=== PATIENT | male | born 1935 | race Caucasian/White ===

== ENCOUNTER 2016-10-07 10:13 | Inpatient (IN) | payer MEDICARE, OTHER ==
[2016-10-07] VITALS (8 sets, daily range): BP systolic 133–164; BP diastolic 63–80; PULSE 80–86; RESP 18–21; TEMP 97.2–98.2; O2SAT 94–97
[~2016-10-07] VITALS: Ht 167.6 cm; Wt 92.3 kg
[~2016-10-07 10:13] MED LIST: ASPI325T PO; ATOR80TA PO; FISH1000 PO; FLUO.1%O OP; GLIP5 PO; GLUCTAB OR; ISOS30 OR; LISI-366 PO; SERT-129 PO; TRAZ100 PO
[2016-10-07] MEDS ORDERED: ISOS10TA3 PO (10:35)
[2016-10-07] MEDS ORDERED: SERT-129 PO (10:35)
[2016-10-07] MEDS ORDERED: LISI40TA PO (10:35)
[2016-10-07] MEDS ORDERED: ATOR1TAB18 PO (10:35)
[2016-10-07] MEDS ORDERED: GLIP5TAB8 PO (10:35)
[2016-10-07] MEDS ORDERED: SODIUM CHLOR 0.9% 1000 ML INJ 1,000 ML IV ONE (10:37)
[2016-10-07] MEDS ORDERED: SODIUM CHLORIDE 0.9% FLUSH 10 ML FLUSH IVF PRN (10:45)
--- NOTE | 2016-10-07 10:47 | PD ---
HPI . Fall Chief Complaint: Fall Time Seen by Provider: 10:37 Travel History International Travel<30 days: No Contact w/Intl Traveler<30days: No Traveled to known affect area: No History of Present Illness HPI Patient presents by [facility] chief complaint fall. Patient reports that he fell in the bathroom this morning and struck his head on the floor. He denies loss of consciousness. This patient has reportedly been suffering numerous falls in the recent past. His other reported to EMS that the patient has had a decreased level of consciousness for the last several days. Patient reports that he has had a couple of episodes of emesis. He has been incontinent of urine. He denies any associated fever. He states he struck his head when he fell this morning but otherwise had no injuries. Patient denies headache, blurred vision, neck pain, chest pain shortness of breath or diarrhea. He admits to occasional emesis and some urinary hesitancy and dribbling. He states that he is normally ambulatory and occasionally uses a walker. PFSH Past Medical History Autoimmune Disease: No Anxiety: Yes Depression: Yes Cancer: No Cardiovascular Problems: Yes (TRIPPLE BYPASS) High Cholesterol: Yes Chest Pain: Yes Cerebrovascular Accident: Yes (X2) Diabetes: Yes Patient Takes Glucophage: No Diminished Hearing: No Endocrine: Yes Gastrointestinal Disorders: No Genitourinary: No Heparin Induced Thrombocytopen: No Hypertension: Yes Immune Disorder: No Implanted Vascular Access Dvce: No Musculoskeletal: No Neurologic: Yes Psychiatric: Yes Reproductive: No Respiratory: No Myocardial Infarction: Yes (23 YEARS AGO ) Sickle Cell Disease: No Thyroid Disease: No Past Surgical History Cardiac Surgery: Yes (TRIPLE BYPASS) Coronary Artery Bypass Graft: Yes (TRIPLE BYPASS) Oral Surgery: Yes (PARTIAL PLATES IN MOUTH ) Pacemaker: No Other Surgery: Yes (FISSURE A TEENAGER) Social History Alcohol Use: No Tobacco Use: No Substance Use: No Allergies-Medications (Allergen,Severity, Reaction): Coded Allergies: No Known Allergies (Unverified , 12/13/15) Reported Meds & Prescriptions Reported Meds & Active Scripts Active Reported Glipizide 5 Mg Tab 5 Mg PO DAILY Take 30 minutes before a meal Sertraline (Sertraline HCl) 100 Mg Tab 100 Mg PO DAILY Atorvastatin (Atorvastatin Calcium) 80 Mg Tab 80 Mg PO HS Isosorbide Mononitrate 10 Mg Tab 10 Mg PO BID Take 2 doses 7 hours apart. Lisinopril 40 Mg Tab 40 Mg PO DAILY Review of Systems Except as stated in HPI: all other systems reviewed are Neg General / Constitutional: No: Fever, Chills Eyes: No: Diploplia, Blurred Vision HENT: No: Headaches, Vertigo, Lightheadedness Cardiovascular: No: Chest Pain or Discomfort Respiratory: No: Shortness of Breath Gastrointestinal: Positive: Nausea, Vomiting, No: Diarrhea, Abdominal Pain Genitourinary: Positive: Hesitancy, Dribbling Neurologic: Positive: Weakness, No: Syncope Physical Exam Narrative GENERAL: Disheveled, elderly man who does not appear to be in any acute distress SKIN: Warm and dry. HEAD: Atraumatic. Normocephalic. No external signs of injury to his head. EYES: Pupils equal and round. Extraocular movements are intact. ENT: No nasal bleeding or discharge. Mucous membranes pink and moist. NECK: Trachea midline. Neck is supple with full range of motion. CARDIOVASCULAR: Regular rate and rhythm. Heart sounds are normal. RESPIRATORY: No accessory muscle use. Lungs sound clear with full air movement throughout. GASTROINTESTINAL: Abdomen soft, non-tender. Protuberant abdomen. MUSCULOSKELETAL: No obvious deformities. No edema. NEUROLOGICAL: Awake and alert. No obvious cranial nerve deficits. Motor grossly within normal limits. Normal speech. PSYCHIATRIC: Appropriate mood and affect; insight and judgment normal. Data Data Last Documented VS Vital Signs Date Time Temp Pulse Resp B/P Pulse Ox O2 Delivery O2 Flow Rate FiO2 10/07/16 10:44 95 Nasal Cannula 2 10/07/16 10:36 84 18 10/07/16 10:27 98.2 149/69 Orders Electrocardiogram (10/07/16 10:37) Complete Blood Count With Diff (10/07/16 10:37) Comprehensive Metabolic Panel (10/07/16 10:37) Magnesium (Mg) (10/07/16 10:37) Ckmb (Isoenzyme) Profile (10/07/16 10:37) Troponin I (10/07/16 10:37) Urinalysis - C+S If Indicated (10/07/16 10:37) Chest, Single Ap (10/07/16 10:37) Ct Brain W/O Iv Contrast(Rout) (10/07/16 10:37) Ecg Monitoring (10/07/16 10:37) Iv Access Insert/Monitor (10/07/16 10:37) Oximetry (10/07/16 10:37) Sodium Chloride 0.9% Flush (Ns Flush) (10/07/16 10:45) Sodium Chlor 0.9% 1000 Ml Inj (Ns 1000 M (10/07/16 10:37) CKMB (10/07/16 10:45) CKMB% (10/07/16 10:45) Admit Order (Ed Use Only) (10/07/16 12:11) Consult Nephrology (10/07/16 ) Labs Laboratory Tests Test 10/07/16 10/07/16 10/07/16 10:45 10:49 11:25 Sodium Level 134 MEQ/L Potassium Level 5.8 MEQ/L Chloride Level 96 MEQ/L Carbon Dioxide Level 17.0 MEQ/L Anion Gap 21 MEQ/L Blood Urea Nitrogen 198 MG/DL Creatinine 11.84 MG/DL Estimat Glomerular Filtration 4 ML/MIN Rate Random Glucose 172 MG/DL Calcium Level 8.4 MG/DL Magnesium Level 2.7 MG/DL Total Bilirubin 0.7 MG/DL Aspartate Amino Transf 24 U/L (AST/SGOT) Alanine Aminotransferase 29 U/L (ALT/SGPT) Alkaline Phosphatase 114 U/L Total Creatine Kinase 513 U/L Creatine Kinase MB 17.8 NG/ML Creatine Kinase MB % 3.5 % Troponin I 0.24 NG/ML Total Protein 7.2 GM/DL Albumin 3.0 GM/DL White Blood Count 24.1 TH/MM3 Red Blood Count 4.84 MIL/MM3 Hemoglobin 13.9 GM/DL Hematocrit 42.6 % Mean Corpuscular Volume 88.0 FL Mean Corpuscular Hemoglobin 28.8 PG Mean Corpuscular Hemoglobin 32.7 % Concent Red Cell Distribution Width 13.9 % Platelet Count 283 TH/MM3 Mean Platelet Volume 9.7 FL Neutrophils (%) (Auto) 91.0 % Lymphocytes (%) (Auto) 2.1 % Monocytes (%) (Auto) 6.8 % Eosinophils (%) (Auto) 0.0 % Basophils (%) (Auto) 0.1 % Neutrophils # (Auto) 21.9 TH/MM3 Lymphocytes # (Auto) 0.5 TH/MM3 Monocytes # (Auto) 1.6 TH/MM3 Eosinophils # (Auto) 0.0 TH/MM3 Basophils # (Auto) 0.0 TH/MM3 CBC Comment DIFF FINAL Differential Comment Urine Color YELLOW Urine Turbidity HAZY Urine pH 5.0 Urine Specific [place] 1.010 Urine Protein TRACE mg/dL Urine Glucose (UA) NEG mg/dL Urine Ketones NEG mg/dL Urine Occult Blood MOD Urine Nitrite NEG Urine Bilirubin NEG Urine Urobilinogen LESS THAN 2.0 MG/DL Urine Leukocyte Esterase NEG Urine RBC 31 /hpf Urine WBC 5 /hpf Urine Squamous Epithelial <1 /hpf Cells Urine Transitional Epithelial <1 /hpf Cells Urine Amorphous Sediment FEW Urine Bacteria FEW /hpf Microscopic Urinalysis Comment CULT NOT INDICATED MDM Medical Decision Making Medical Screen Exam Complete: Yes Emergency Medical Condition: Yes Medical Record Reviewed: Yes (medical history is significant for hypertension, CVA, coronary artery disease status post CABG, diabetes, hyperlipidemia) Differential Diagnosis Differential diagnosis of weakness includes but is not limited to infection, CVA , electrolyte disturbance, renal failure, hypoglycemia, UTI, ACS, acute blood loss Narrative Course Patient presents for evaluation of a fall this morning with an injury to his head. He also needs to be evaluated for weakness with frequent falls. Last Impressions Head CT 10/07/16 1037 Signed Impressions: Service Date/Time: Friday, October 07, 2016 10:55 - CONCLUSION: No acute disease. Simi Cuevas MD Chest X-Ray 10/07/16 1037 Signed Impressions: Service Date/Time: Friday, October 07, 2016 10:38 - CONCLUSION: No acute disease. Simi Cuevas MD Chest x-ray was independently viewed by me. CBC & BMP Diagram 10/07/16 10:45 10/07/16 10:49 Total CK is 513, the 17.8, RI 3.5 and troponin 0.24. This is probably related to his renal failure. UA has blood but is otherwise negative. Physician Communication Physician Communication Dr. Hicks will admit to the residents' service. Diagnosis Primary Impression: Leukocytosis Qualified Code: D72.829 - Leukocytosis, unspecified type Additional Impressions: Frequent falls Renal failure Admitting Information Admitting Physician Requests: Admit Condition: Stable Iram Rasmussen MD Oct 07, 2016 10:47
--- NOTE | 2016-10-07 11:00 | RADRPT ---
EXAM DATE/TIME: 10/07/2016 10:38 [facility] COMPARISON: CHEST SINGLE AP, August 29, 2015, 12:06. INDICATIONS : Syncopal episode. MEDICAL HISTORY : None. SURGICAL HISTORY : Triple bypass. ENCOUNTER: Initial ACUITY: 1 day PAIN SCORE: 0/10 LOCATION: Bilateral chest FINDINGS: A single view of the chest demonstrates the lungs to be symmetrically aerated without evidence of mas s, infiltrate or effusion. Heart size is normal. Multiple intact median sternotomy wires. Osseous str uctures are intact. CONCLUSION: No acute disease. Simi Cuevas MD on October 07, 2016 at 10:59 Board Certified Radiologist. This report was verified electronically.
[2016-10-07 11:10] LABS: AUTOMATED NEUTROPHIL # 21.9 TH/MM3 (1.8-7.7); BASOPHIL % 0.1 % (0.0-2.0); HEMATOCRIT 42.6 % (39.0-51.0); HEMO FLAGS DIFF FINAL; LYMPH % 2.1 % (9.0-44.0); LYMPHOCYTE # 0.5 TH/MM3 (1.0-4.8); MEAN CORPUSCULAR HEMOGLOBIN 28.8 PG (27.0-34.0); MEAN CORPUSCULAR HGB CONC 32.7 % (32.0-36.0); MONO % 6.8 % (0.0-8.0); PLATELET COUNT 283 TH/MM3 (150-450); RED BLOOD COUNT 4.84 MIL/MM3 (4.50-5.90); RED CELL DISTRIBUTION WIDTH 13.9 % (11.6-17.2); WHITE BLOOD COUNT 24.1 TH/MM3 (4.0-11.0)
--- NOTE | 2016-10-07 11:12 | RADRPT ---
EXAM DATE/TIME: 10/07/2016 10:55 [facility] COMPARISON: CT BRAIN W/O CONTRAST, December 13, 2015, 14:15. INDICATIONS : Fall, generalized weakness. RADIATION DOSE: 45.22 CTDIvol (mGy) MEDICAL HISTORY : Stroke. Cardiovascular disease Hypertension. SURGICAL HISTORY : None. ENCOUNTER: Initial ACUITY: 1 day PAIN SCALE: 0/10 LOCATION: cranial TECHNIQUE: Multiple contiguous axial images were obtained of the head. Using automated exposure control and adj ustment of the mA and/or kV according to patient size, radiation dose was kept as low as reasonably a chievable to obtain optimal diagnostic quality images. FINDINGS: CEREBRUM: The ventricles are normal for age. No evidence of midline shift, mass lesion, hemorrhage or acute in farction. No extra-axial fluid collections are seen. POSTERIOR FOSSA: The cerebellum and brainstem are intact. The 4th ventricle is midline. The cerebellopontine angle i s unremarkable. EXTRACRANIAL: The visualized portion of the orbits is intact. SKULL: The calvaria is intact. No evidence of skull fracture. CONCLUSION: No acute disease. Simi Cuevas MD on October 07, 2016 at 11:10 Board Certified Radiologist. This report was verified electronically.
[2016-10-07 11:33] LABS: ALT (GPT) 29 U/L (12-78); ANION GAP 21 MEQ/L (5-15); AST (GOT) 24 U/L (15-37); CHLORIDE 96 MEQ/L (98-107); GLOMERULAR FILTRATION RATE 4 ML/MIN (>89); MAGNESIUM 2.7 MG/DL (1.5-2.5); POTASSIUM 5.8 MEQ/L (3.5-5.1); SODIUM (NA) 134 MEQ/L (136-145)
[2016-10-07 11:36] LABS: ALKALINE PHOSPHATASE 114 U/L (45-117); BLOOD UREA NITROGEN 198 MG/DL (7-18); CREATINE KINASE 513 U/L (39-308); TOTAL BILIRUBIN ADULT 0.7 MG/DL (0.2-1.0)
[2016-10-07 11:48] LABS: BACTERIA, URINE FEW /hpf; BLOOD, URINE MOD (NEG); GLUCOSE,URINE NEG (NEG); KETONE, URINE NEG (NEG); NITRITE,URINE NEG (NEG); SQUAMOUS EPITHELIAL CELL URINE <1 /hpf (0-5); TRANSITIONAL EPI CELLS, URINE <1 /hpf; URINE COLOR YELLOW (YELLW/STRAW)
[2016-10-07 11:50] LABS: COMMENT (UR) CULT NOT INDICATED; CULTURE IF INDICATED CULT NOT INDICATED
[2016-10-07 12:00] LABS: CKMB 17.8 NG/ML (0.5-3.6)
--- NOTE | 2016-10-07 12:59 | HHI.HP ---
[facility] Service Family Medicine Primary Care Physician [facility] Admission Diagnosis RENAL FAILURE, FREQUENT FALLS Diagnoses: International Travel<30 Days: No Contact w/Intl Traveler<30days: No Known Affected Area: No History of Present Illness Pt is an 81 year old male with past medical history significant for CVA, CAD s/p CABG, hypertension, DM presenting due to recurrent falls, found to be in renal failure. Pt presents to the ED with a family friend. Pt reports that he has been falling more frequently over the past week and has fallen 5 times. He reports that this morning he was in the bathroom when he fell and hit the right side of his forehead. He denies loss of consciousness or chest pain prior to fall. He is unable to recall the events leading up to the fall or describe how he fell. He reports that his girlfriend who lives with him has also fallen recently. His daughter who was in [place] was informed that he fell and encouraged him to go to the ED. [facility] was called and brought pt to the emergency department. He has been feeling progressively more week over the past week. He is able to produce urine, but reports low urine volume and dark color, unsure of any blood. Over the past 2 weeks he has been having chest pain located on the left side fo his chest with radiation down his left arm. Pain is intermittent and he is not able to describe it. He denies current chest pain, shortness of breath, abdominal pain. Pt has a difficult time answering direct questions and history was difficult to obtain. Family friend who is present in the room reports that pt is acting more strange than usual and is not at his baseline. (German Hicks MD R2) Review of Systems Constitutional: DENIES: Fever Eyes: DENIES: Blurred vision, Vision loss Ears, nose, mouth, throat: DENIES: Hearing loss, Vertigo Cardiovascular: DENIES: Chest pain, Syncope, Lower Extremity Edema Gastrointestinal: COMPLAINS OF: Abdominal pain, Constipation Genitourinary: DENIES: Urinary frequency, Dysuria Musculoskeletal: COMPLAINS OF: Joint pain, Muscle aches Integumentary: COMPLAINS OF: Pruritus, DENIES: Abnormal pigmentation, Rash Neurologic: COMPLAINS OF: Localized weakness, DENIES: Speech Problems Psychiatric: COMPLAINS OF: Mood changes, Depression (German Hicks MD R2) Past Family Social History Past Medical History CVA x2 CAD hypertension diabetes mellitus Past Surgical History CABG Oral surgery Reported Medications Reported Meds & Active Scripts Active Reported Glipizide 5 Mg Tab 5 Mg PO DAILY Take 30 minutes before a meal Sertraline (Sertraline HCl) 100 Mg Tab 100 Mg PO DAILY Atorvastatin (Atorvastatin Calcium) 80 Mg Tab 80 Mg PO HS Isosorbide Mononitrate 10 Mg Tab 10 Mg PO BID Take 2 doses 7 hours apart. Lisinopril 40 Mg Tab 40 Mg PO DAILY (German Hicks MD R2) Allergies: Coded Allergies: No Known Allergies (Unverified , 12/13/15) Active Ordered Medications Inpatient Medications Acetaminophen (Tylenol) 650 mg Q6H PRN PO HEADACHE OR TEMP > 101 F; Start at 13:45 Aspirin (Aspirin) 325 mg NOW PO Last administered on 10/07/16 14:02; Start 10/07 at 14:00; Stop 10/08/16 at 13:59 Dextrose (D50w (Vial) Inj) 25 ml UNSCH PRN IV PUSH HYPOGLYCEMIA-SEE COMMENTS; Start 10/07/16 at 15:00 Glucagon (Glucagon Inj) 1 mg UNSCH PRN OTHER HYPOGLYCEMIA-SEE COMMENTS; Start 10/07/16 at 15:00 Heparin Sodium (Porcine) 5000 units 5,000 units Q8H SQ Last administered on 10/07 14:02; Start 10/07/16 at 14:00 Insulin Aspart 1 1 ACHS SLIDING SCALE SQ ; Start 10/07/16 at 16:00 Morphine Sulfate (Morphine Inj) 2 mg Q30M PRN IV CHEST PAIN; Start 10/07/16 at 14:00 Nitroglycerin (Nitrostat Sl) 0.4 mg Q5M PRN SL CHEST PAIN; Start 10/07/16 at 14: 00 Sertraline HCl (Zoloft) 100 mg DAILY PO ; Start 10/08/16 at 09:00 Sodium Bicarbonate/ Sodium Chloride (Sodium Bicarbonate 8.4% Inj/1/2 NS 1000 ml Inj) 1,075 ml @ 125 mls/hr Q8H36M IV ; Start 10/07/16 at 17:00 Sodium Chloride (NS 1000 ml Inj) 1,000 ml @ 200 mls/hr Q5H IV Last administered on 10/07/16 14:03; Start 10/07/16 at 13:54; Stop 10/07/16 at 16:31; Status DC Sodium Chloride (NS Flush) 2 ml UNSCH PRN IV FLUSH FLUSH AFTER USING IV ACCESS ; Start 10/07/16 at 13:45 Family History Mother and father lived healthy lives and of old age. Social History Quit smoking 20 years ago, smoked 1PPD for about 10 years He will have a beer occasionally. Denies illicit substance use Lives in a mobile home with his girl friend. (German Hicks MD R2) Physical Exam Vital Signs Vital Signs Date Time Temp Pulse Resp B/P Pulse Ox O2 Delivery O2 Flow Rate FiO2 10/07/16 12:35 80 18 164/80 97 Nasal Cannula 2 10/07/16 10:44 95 Nasal Cannula 2 10/07/16 10:36 84 18 99 Room Air 10/07/16 10:27 98.2 85 18 149/69 Physical Exam GENERAL: This is a well-nourished, well-developed patient, in no apparent distress. SKIN: No rashes, ecchymoses or lesions. Cool and dry. HEAD: Atraumatic. Normocephalic. No temporal or scalp tenderness. EYES: Pupils equal round and reactive. Extraocular motions intact. No scleral icterus. No injection or drainage. ENT: Nose without bleeding, purulent drainage or septal hematoma. Throat without erythema, tonsillar hypertrophy or exudate. Uvula midline. Airway patent. NECK: Trachea midline. No JVD or lymphadenopathy. Supple, nontender, no meningeal signs. CARDIOVASCULAR: Regular rate and rhythm without murmurs, gallops, or rubs. RESPIRATORY: Clear to auscultation. Breath sounds equal bilaterally. No wheezes , rales, or rhonchi. GASTROINTESTINAL: Abdomen soft, non-tender, + bowel sounds. No hepato- splenomegaly, or palpable masses. No guarding. Umbilical hernia, reducible. MUSCULOSKELETAL: Extremities without clubbing, cyanosis, or edema. No joint effusion, or edema noted. No calf tenderness. Negative Homans sign bilaterally. NEUROLOGICAL: Alert and oriented to person place and time. Cranial nerves grossly intact. Motor and sensory grossly within normal limits, pt able to move all extremities against resistance. Slow speech. Pt with difficulty answering questions directly. Laboratory Laboratory Tests Test 10/07/16 10/07/16 10/07/16 10:45 10:49 11:25 Sodium Level 134 Potassium Level 5.8 Chloride Level 96 Carbon Dioxide Level 17.0 Anion Gap 21 Blood Urea Nitrogen 198 Creatinine 11.84 Estimat Glomerular Filtration 4 Rate Random Glucose 172 Calcium Level 8.4 Magnesium Level 2.7 Total Bilirubin 0.7 Aspartate Amino Transf 24 (AST/SGOT) Alanine Aminotransferase 29 (ALT/SGPT) Alkaline Phosphatase 114 Total Creatine Kinase 513 Creatine Kinase MB 17.8 Creatine Kinase MB % 3.5 Troponin I 0.24 Total Protein 7.2 Albumin 3.0 White Blood Count 24.1 Red Blood Count 4.84 Hemoglobin 13.9 Hematocrit 42.6 Mean Corpuscular Volume 88.0 Mean Corpuscular Hemoglobin 28.8 Mean Corpuscular Hemoglobin 32.7 Concent Red Cell Distribution Width 13.9 Platelet Count 283 Mean Platelet Volume 9.7 Neutrophils (%) (Auto) 91.0 Lymphocytes (%) (Auto) 2.1 Monocytes (%) (Auto) 6.8 Eosinophils (%) (Auto) 0.0 Basophils (%) (Auto) 0.1 Neutrophils # (Auto) 21.9 Lymphocytes # (Auto) 0.5 Monocytes # (Auto) 1.6 Eosinophils # (Auto) 0.0 Basophils # (Auto) 0.0 CBC Comment DIFF FINAL Differential Comment Urine Color YELLOW Urine Turbidity HAZY Urine pH 5.0 Urine Specific [place] 1.010 Urine Protein TRACE Urine Glucose (UA) NEG Urine Ketones NEG Urine Occult Blood MOD Urine Nitrite NEG Urine Bilirubin NEG Urine Urobilinogen LESS THAN 2.0 Urine Leukocyte Esterase NEG Urine RBC 31 Urine WBC 5 Urine Squamous Epithelial <1 Cells Urine Transitional Epithelial <1 Cells Urine Amorphous Sediment FEW Urine Bacteria FEW Microscopic Urinalysis Comment CULT NOT INDICATED (German Hicks MD R2) Result Diagram: 10/07/16 1049 10/07/16 1045 Imaging Last [address] 10/07/16 1037 Signed Impressions: Service Date/Time: Friday, October 07, 2016 10:55 - CONCLUSION: No acute disease. Simi Cuevas MD Chest X-Ray 10/07/16 1037 Signed Impressions: Service Date/Time: Friday, October 07, 2016 10:38 - CONCLUSION: No acute disease. Simi Cuevas MD Renal Ultrasound 10/07/16 0000 Signed Impressions: Service Date/Time: Friday, October 07, 2016 14:47 - CONCLUSION: 1. Moderate hydronephrosis of the left collecting system. 2. Distended urinary bladder. Vasiliy Owusu MD (German Hicks MD R2) Assessment and Plan Assessment and Plan Pt is an 81 year old male with past medical history significant for CVA, CAD s/p CABG, hypertension, DM presenting due to recurrent falls, found to be in renal failure. Pt endorses vague history of chest pain, initial troponin elevated to 0.24. Nephrology has been consulted. Will rule out ACS. Code Status Full Discussed Condition With dw Dr. Mendoza, Dr. Goins (German Hicks MD R2) Attending Attestation Patient seen and examined. Case reviewed and discussed with the resident team. Agree with plan of care as discussed with me and documented in the resident note. pt seen in his room when admitted and spoke to his daughter (Mariana Mendoza MD) Problem List: (1) Renal failure Status: Acute Plan: On admission pt with significantly elevated Creatinine of 11.84. Baseline is around 1.10. Unclear etiology of renal failure, likely obstructive. Nephrology has been consulted, appreciate recommendations -See fluid below -Graff catheter placed, monitor urine output -Phosphorus elevated to 8.7 -Potassium elevated to 5.8, no associated EKG changes -Urine creatinine and sodium pending -UDS ordered Imaging: Kidney ultrasound 10/07: Moderate hydronephrosis of the left collecting system. Distended urinary bladder. Indications for dialysis Fluid overload refractory to diuretics Hyperkalemia> 6.5 Metabolic acidosis pH<7.1 Signs of uremia: Pericarditis, neuropathy, decline in mental status (2) Leucocytosis Status: Acute Plan: On admission patient with elevated white blood cell count of 24.9 with left shift. Patient has been afebrile. Likely due to acute renal failure. -Lactic acid pending -Blood cultures ordered -UA with no signs of infection -Chest x-ray showing no acute disease -Continue to monitor for signs of infection (3) Weakness Status: Acute Plan: Likely due to renal failure, differential includes malnutrition versus hyperammonemia versus vitamin deficiency versus others. Will check the following: -Ammonia -Vitamin B-12 -Thiamine -Ethanol -See renal failure above -PT has been consulted (4) Elevated troponin Status: Acute Plan: Pt with history of CABG. On admission troponin elevated to 0.24, CKMD 17.8, CK 513,likely due to renal failuyre. Pt endorses history of left sided chest pain with radiation down his left arm. This has been intermittent over the past 2 weeks. He is unable to specify the last time he experienced chest pain. -Will rule out ACS -Will trend Troponin, CKMB, EKG x2 (5) Diabetes Status: Acute Plan: -Hold home Glipizide -Low dose SSI (6) Nutrition, metabolism, and development symptoms Status: Acute Plan: Fluids: Sodium bicarbonate 125 mls/hr Electrolytes: See renal failure above, continue to monitor Nutrition: Renal diet (7) No contraindication to deep vein thrombosis (DVT) prophylaxis Status: Acute Plan: -Heparin (German Hicks MD R2) Physician Certification 2 Midnight Certification Type: Admission for Inpatient Services Order for Inpatient Services The services are ordered in accordance with Medicare regulations or non- Medicare payer requirements, as applicable. In the case of services not specified as inpatient-only, they are appropriately provided as inpatient services in accordance with the 2-midnight benchmark. Estimated LOS (days): 2 2 days is the estimated time the patient will need to remain in the hospital, assuming treatment plan goals are met and no additional complications. Post-Hospital Plan: Not yet determined (German Hicks MD R2) Problem Qualifiers (1) Leucocytosis: Qualified Code: D72.829 - Leukocytosis, unspecified type (2) Diabetes: Qualified Code: E11.8 - Type 2 diabetes mellitus with complication, unspecified retirement insulin use status German Hicks MD R2 Oct 07, 2016 12:59 Mariana Mendoza MD Oct 08, 2016 13:46
[2016-10-07] MEDS ORDERED: SODIUM CHLORIDE 0.9% FLUSH 10 ML FLUSH IV FLUSH PRN (13:45)
[2016-10-07] MEDS ORDERED: SODIUM CHLOR 0.9% 1000 ML INJ 1,000 ML IV SCH (13:54)
[2016-10-07] MEDS ORDERED: MORPHINE SULFATE 4 MG/ML INJ IV PRN (14:00)
[2016-10-07] MEDS ORDERED: NITROGLYCERIN 0.4 MG SL 25 TABS/BTL SL PRN (14:00)
[2016-10-07] MEDS ORDERED: HEPARIN SODIUM - SQ 10,000 UNITS/ML VIAL SQ SCH (14:00)
[2016-10-07] MEDS ORDERED: ASPIRIN 325 MG TAB PO SCH (14:00)
[2016-10-07] MEDS ORDERED: DEXTROSE 50% IN WATER 50 ML VIAL(D50) IV PUSH PRN (15:00)
[2016-10-07] MEDS ORDERED: GLUCAGON 1 MG/ML VIAL OTHER PRN (15:00)
--- NOTE | 2016-10-07 15:21 | RADRPT ---
EXAM DATE/TIME: 10/07/2016 14:47 [facility] COMPARISON: No previous studies available for comparison. INDICATIONS : Increased BUN and Creatinine. MEDICAL HISTORY : Myocardial infarction. Hypercholesterolemia. Hypertension. Hearing loss. Cerebrovascular accident. Di abetes. Depression. Anxiety. Measles. SURGICAL HISTORY : CABG. Fissure repair. ENCOUNTER: Initial ACUITY: 1 day PAIN SCORE: 0/10 LOCATION: Bilateral flank MEASUREMENTS: RIGHT KIDNEY: 12.1 x 5.3 x 5.0 cm LEFT KIDNEY: 12.7 x 6.5 x 6.8 cm FINDINGS: RIGHT KIDNEY: Renal cortex is normal in thickness and echotexture. No hydronephrosis, stone, or mass. LEFT KIDNEY: There is moderate hydronephrosis of the left collecting system. No definite calcifications are seen i n the left renal pelvis. The proximal left ureter is dilated. BLADDER: Urinary bladder appears to be distended with a volume of 1679 mL. CONCLUSION: 1. Moderate hydronephrosis of the left collecting system. 2. Distended urinary bladder. Vasiliy Owusu MD on October 07, 2016 at 15:18 Board Certified Radiologist. This report was verified electronically.
[2016-10-07] MEDS: INSULIN ASPART SUPPLEMENTAL SCALE SQ SCH ×2 (16:00→22:29)
[2016-10-07] MEDS: SODIUM BICARBONATE 8.4% INJ 75 MEQ in SODIUM CHLOR 0.45% 1000 ML INJ 1,000 ML IV SCH (18:41)
[2016-10-07 19:34] LABS: CKMB 15.6 NG/ML (0.5-3.6)
[2016-10-07] MEDS: SODIUM CHLORIDE 0.9% FLUSH 10 ML FLUSH IV FLUSH SCH (21:00)
[2016-10-07 21:07] LABS: AMPHETAMINE, URINE NEG (NEG); BARBITURATES, URINE NEG (NEG); COCAINE, URINE NEG (NEG)
--- NOTE | 2016-10-07 21:23 | MB ---
cc: GRETA BARBER MD DATE OF CONSULTATION 10/07/16 REASON FOR CONSULTATION Acute renal failure management. HISTORY OF PRESENT ILLNESS This is an 81-year-old male with a history of CVA as well as CAD status post coronary artery bypass graft, hypertension and diabetes. The patient apparently has had several recurrent falls at home and has been falling apparently more at home over the last week. Apparently, the patient lives in a mobile home and was in the bathroom and fell and hit the right side of his forehead. The patient denies any loss of consciousness or dizziness otherwise. However, he was on the floor for some time. It was unclear how long he had been on the floor. The patient apparently has had some low urine output for several days with some dark color. He has some intermittent chest pain noted as well. The patient was brought to the emergency room and evaluated. Here he was found to have significant renal failure with a creatinine of 11.8. His previous creatinine was 1.3 in November of last year. The patient was admitted to the ER and started on IV fluids with normal saline at 100 cc/hour. At this point, he has been resting in bed comfortably. No acute distress or complaints. He does report having some generalized weakness. He otherwise has no acute complaints. REVIEW OF SYSTEMS The patient reports having several falls over the last several weeks. No nausea or vomiting. He has had some constipation. No current chest pains. However, did report having some chest pains earlier. No dizziness or loss of consciousness otherwise review of systems negative. The patient otherwise has reported some urinary incontinence. PAST MEDICAL HISTORY 1. Cerebrovascular accident x2, 2. Coronary artery disease 3. Hypertension, 4. Diabetes. PAST SURGICAL HISTORY 1. Coronary artery bypass graft 2. Oral surgery. MEDICATIONS At home, 1. Glipizide. 2. Sertraline. 3. Atorvastatin 4. Imdur 5. Lisinopril 40 mg daily. ALLERGIES NO KNOWN DRUG ALLERGIES. FAMILY HISTORY Mother and father of old age. SOCIAL HISTORY History of tobacco use, quit smoking 20 years ago with one pack per day for 10 years. The patient with social alcohol use. No drug use. The patient lives in a mobile home with his girlfriend. PHYSICAL EXAMINATION VITAL SIGNS: At time of evaluation, temperature 97.2, pulse 86, respiratory rate 21, blood pressure 156/72 with pulse ox 94%. GENERAL: Awake, somewhat confused, no apparent distress. HEENT/NECK: Soft, supple. CARDIAC: Regular rate and rhythm. PULMONARY: Lungs clear to auscultation bilaterally. ABDOMEN: Soft, nontender, nondistended. EXTREMITIES: No edema. LABORATORY DATA White count 24.1, hemoglobin 13.9, hematocrit 42.6 with platelet count 283. Sodium 134, potassium 5.8, chloride 96, bicarb 17, BUN 198, creatinine 11.8, glucose 172, calcium 8.4, phosphorus 8.7, magnesium 2.7, CK 513, CK-MB 17.8 with troponin 0.24, albumin 3.0. Urinalysis with trace protein, negative glucose, less than one epithelial cell, few bacteria. Few sediment. 31 red blood cells noted. ASSESSMENT/PLAN 1. Acute kidney injury. The patient had a creatinine of 1.3 in November of last year. At this point, he has presented with a creatinine of 11.8. It is unclear right now what the exact etiology would be for this. I will go ahead and check urine electrolytes, urine sodium and urine creatinine. The patient may have had some potential rhabdomyolysis after his fall. His initial CK level here, however, is 513. In addition, the patient had a renal ultrasound performed which showed moderate left-sided hydronephrosis and distended urinary bladder with approximately 1.6 liters of urine in the bladder. At this point, I will go ahead and order a Graff catheter and continue to monitor urine output. May consider repeat renal imaging after Graff is in to assess for any ongoing hydronephrosis or bladder issues. However, I suspect there may be an obstructive component here which may be potentially due to prostate hypertrophy. May consider further evaluation if necessary, however start with Graff catheter at this point and continue to monitor for urine output. At this point, continue with normal saline. We will give IV fluids at 125 cc/hour and continue monitor for improvement in urine output. 2. Hyperkalemia. The patient had a potassium level of 5.8. This was likely secondary to acute renal failure. Continue with IV fluids and monitor for urine output at this point. No immediate need for any hemodialysis at this time, however, if patient has little improvement or minimal urine output may need to consider for dialysis. 3. Acidosis. The patient has a bicarbonate of 17. We will add bicarbonate to IV fluids and continue to monitor. 4. Hypertension, blood pressure is stable. 5. Diabetes. Continue with glucose and insulin sliding scale. 6. CAD. The patient has some mild chest pains. Initial troponin was 0.24. Continue to monitor. Followup enzymes with primary team. 7. Recent falls. The patient has reportedly had recent fall. It is unclear what the etiology is for this at this point. At this point he is resting in bed comfortably. The patient had a CT of the head when he came in with no acute disease. Continue to monitor. MD GREG SalmeronP/ /4:26 PM /9:02 PM MTDD
[2016-10-07] MEDS: HEPARIN SODIUM - SQ 10,000 UNITS/ML VIAL SQ SCH (22:27)
[2016-10-08] VITALS (10 sets, daily range): BP systolic 140–157; BP diastolic 63–85; PULSE 72–86; RESP 17–20; TEMP 97.3–97.8; O2SAT 94–97
[2016-10-08] MEDS: SODIUM BICARBONATE 8.4% INJ 75 MEQ in SODIUM CHLOR 0.45% 1000 ML INJ 1,000 ML IV SCH ×3 (01:07→20:14)
[2016-10-08 01:18] LABS: CREATINE KINASE 291 U/L (39-308)
[2016-10-08 01:32] LABS: CKMB 13.2 NG/ML (0.5-3.6)
[2016-10-08] MEDS: INSULIN ASPART SUPPLEMENTAL SCALE SQ SCH ×4 (05:43→20:14)
[2016-10-08 07:32] LABS: AUTOMATED NEUTROPHIL # 14.5 TH/MM3 (1.8-7.7); HEMO FLAGS DIFF FINAL; LYMPH % 3.8 % (9.0-44.0); LYMPHOCYTE # 0.6 TH/MM3 (1.0-4.8); MEAN CELL VOLUME 87.2 FL (80.0-100.0); MEAN CORPUSCULAR HEMOGLOBIN 29.4 PG (27.0-34.0); MEAN CORPUSCULAR HGB CONC 33.8 % (32.0-36.0); NEUT % 87.2 % (16.0-70.0); PLATELET COUNT 281 TH/MM3 (150-450); RED CELL DISTRIBUTION WIDTH 13.9 % (11.6-17.2); WHITE BLOOD COUNT 16.6 TH/MM3 (4.0-11.0)
[2016-10-08 07:46] LABS: HDL CHOLESTEROL 39.3 MG/DL (40.0-60.0)
[2016-10-08 07:58] LABS: POTASSIUM 4.7 MEQ/L (3.5-5.1)
[2016-10-08] MEDS: SERTRALINE HCL 100 MG TAB PO SCH (09:32)
[2016-10-08] MEDS: SODIUM CHLORIDE 0.9% FLUSH 10 ML FLUSH IV FLUSH SCH ×2 (09:32→20:13)
[2016-10-08] MEDS: HEPARIN SODIUM - SQ 10,000 UNITS/ML VIAL SQ SCH ×2 (09:33→20:13)
--- NOTE | 2016-10-08 10:15 | EKG ---
Date Performed: 10/07/2016 Time Performed: 19:20:44 PTAGE: 81 years EKG: Sinus rhythm WITH FREQUENT VENTRICULAR PREMATURE COMPLEXES ANTEROLATERAL MYOCARDIAL INFARCTION , OF INDETERMINATE AGE ABNORMAL ECG Compared to prior tracing no significant change PREVIOUS TRACING : 10/07/2016 11.06 DOCTOR: Johnnie Dutta Interpretating Date/Time 10/08/2016 10:13:37
--- NOTE | 2016-10-08 10:15 | EKG ---
Date Performed: 10/07/2016 Time Performed: 11:06:47 PTAGE: 81 years EKG: Sinus rhythm ANTEROLATERAL MYOCARDIAL INFARCTION ABNORMAL ECG INTERPRETATION BASED ON A DEFAULT AGE OF 40 YEARS C ompared to prior tracing no significant change PREVIOUS TRACING : 12/13/2015 13.00 DOCTOR: Johnnie Dutta Interpretating Date/Time 10/08/2016 10:13:29
--- NOTE | 2016-10-08 10:15 | EKG ---
Date Performed: 10/07/2016 Time Performed: 22:20:51 PTAGE: 81 years EKG: Sinus rhythm WITH FREQUENT VENTRICULAR PREMATURE COMPLEXES ANTEROLATERAL MYOCARDIAL INFARCTION , PROBABLY OLD ABN ORMAL ECG Compared to prior tracing no significant change PREVIOUS TRACING : 10/07/2016 19.20 DOCTOR: Johnnie Dutta Interpretating Date/Time 10/08/2016 10:13:50
--- NOTE | 2016-10-08 10:50 | HHI.HP ---
[facility] Service Family Medicine Primary Care Physician Abelino [facility] Admission Diagnosis RENAL FAILURE, FREQUENT FALLS Diagnoses: (1) Renal failure Diagnosis: Principal (2) Leucocytosis Diagnosis: Principal (3) Weakness Diagnosis: Principal (4) Elevated troponin Diagnosis: Principal (5) Diabetes Diagnosis: Principal (6) Nutrition, metabolism, and development symptoms Diagnosis: Principal (7) No contraindication to deep vein thrombosis (DVT) prophylaxis Diagnosis: Principal International Travel<30 Days: No Contact w/Intl Traveler<30days: No Known Affected Area: No History of Present Illness Mr Prakash is an 81 year old male with past medical history significant for CVA, CAD s/p CABG, hypertension, DM presenting due to recurrent falls, found to be in renal failure. Pt presented to the ED with a family friend. Pt reports that he has been falling more frequently over the past week and has fallen 5 times. He reports that in the morning he was in the bathroom when he fell and hit the right side of his forehead. He denies loss of consciousness or chest pain prior to fall. He is unable to recall the events leading up to the fall or describe how he fell. He reports that his girlfriend who lives with him has also fallen recently. His daughter who was in [place] was informed that he fell and encouraged him to go to the ED. EVAC was called and brought pt to the emergency department. He has been feeling progressively more weak over the past week. He is able to produce urine, but reports low urine volume and dark color, unsure of any blood. Over the past 2 weeks he has been having chest pain located on the left side fo his chest with radiation down his left arm. Pain is intermittent and he is not able to describe it. He denies current chest pain, shortness of and abdominal pain. Pt has a difficult time answering direct questions and history was difficult to obtain on admission. Family friend who is present in the room reports that pt is acting more strange than usual and is not at his baseline. After a roe catheter was placed he had an immediate liter of urine into the bag and another liter plus over the next hour. His creatinine is way down today from 11 to 6 and he continues to make a good amount of urine. He is clearer mentally than he was last evening when I saw him but is still slightly confused though he can answer questions about his family and living situation better today than last night. Review of Systems Other Constitutional: DENIES: Fever Eyes: DENIES: Blurred vision, Vision loss Ears, nose, mouth, throat: DENIES: Hearing loss, Vertigo Cardiovascular: DENIES: Chest pain, Syncope, Lower Extremity Edema Gastrointestinal: COMPLAINS OF: Abdominal pain, Constipation Genitourinary: DENIES: Urinary frequency, Dysuria Musculoskeletal: COMPLAINS OF: Joint pain, Muscle aches Integumentary: COMPLAINS OF: Pruritus, DENIES: Abnormal pigmentation, Rash Neurologic: COMPLAINS OF: Localized weakness, DENIES: Speech Problems Psychiatric: COMPLAINS OF: Mood changes, Depression Past Family Social History Past Medical History CVA x2 CAD hypertension diabetes mellitus Past Surgical History CABG Oral surgery Allergies: Coded Allergies: No Known Allergies (Unverified , 12/13/15) Family History Mother and father lived healthy lives and of old age. Social History Quit smoking 20 years ago, smoked 1PPD for about 10 years He will have a beer occasionally. Denies illicit substance use Lives in a mobile home with his girl friend. has 3 daughters who live in [place] Physical Exam Vital Signs Vital Signs Date Time Temp Pulse Resp B/P Pulse Ox O2 Delivery O2 Flow Rate FiO2 10/08/16 09:08 95 Nasal Cannula 2.00 10/08/16 08:00 97.3 84 17 157/70 94 10/08/16 04:00 Nasal Cannula 2.00 10/08/16 04:00 97.7 74 18 146/64 95 10/08/16 00:00 97.3 86 20 149/72 96 10/08/16 00:00 Nasal Cannula 2.00 10/07/16 23:26 80 10/07/16 23:04 85 10/07/16 20:00 Nasal Cannula 2.00 10/07/16 20:00 80 20 133/63 97 10/07/16 15:00 97.2 86 21 156/72 94 10/07/16 14:47 97 Nasal Cannula 2.00 10/07/16 12:35 80 18 164/80 97 Nasal Cannula 2 Physical Exam GENERAL: This is a well-nourished, well-developed patient, in no apparent distress. He is more alert and talkative today. roe draining well SKIN: No rashes, ecchymoses or lesions. Cool and dry. HEAD: Atraumatic. Normocephalic. EYES: Pupils equal round and reactive. Extraocular motions intact. No scleral icterus. No injection or drainage. ENT: Nose without bleeding, purulent drainage or septal hematoma. Airway patent. NECK: Trachea midline. No JVD or lymphadenopathy. Supple, nontender, no meningeal signs. CARDIOVASCULAR: Regular rate and rhythm without murmurs, gallops, or rubs. RESPIRATORY: Clear to auscultation. Breath sounds equal bilaterally. No wheezes , rales, or rhonchi. GASTROINTESTINAL: Abdomen soft, non-tender, + bowel sounds. No hepato- splenomegaly, or palpable masses. No guarding. Umbilical hernia, reducible. MUSCULOSKELETAL: Extremities without clubbing, cyanosis, or edema. No joint effusion, or edema noted. No calf tenderness. Negative Homans sign bilaterally. NEUROLOGICAL: Alert and oriented to person place and time. Cranial nerves grossly intact. Motor and sensory grossly within normal limits, pt able to move all extremities against resistance. Slow speech. Pt better ability to answer questions directly. Laboratory Laboratory Tests Test 10/07/16 10/07/16 10/08/16 10/08/16 11:25 18:25 00:12 06:25 Urine Color YELLOW Urine Turbidity HAZY Urine pH 5.0 Urine Specific [place] 1.010 Urine Protein TRACE Urine Glucose (UA) NEG Urine Ketones NEG Urine Occult Blood MOD Urine Nitrite NEG Urine Bilirubin NEG Urine Urobilinogen LESS THAN 2.0 Urine Leukocyte Esterase NEG Urine RBC 31 Urine WBC 5 Urine Squamous Epithelial <1 Cells Urine Transitional Epithelial <1 Cells Urine Amorphous Sediment FEW Urine Bacteria FEW Microscopic Urinalysis Comment CULT NOT INDICATED Urine Random Creatinine 81 Urine Random Total Protein 25 Urine Random Sodium 32 Urine Protein/Creatinine Ratio 0.31 Urine Opiates Screen NEG Urine Barbiturates Screen NEG Urine Amphetamines Screen NEG Urine Benzodiazepines Screen NEG Urine Cocaine Screen NEG Urine Cannabinoids Screen NEG Lactic Acid Level 1.0 Ammonia 18 Total Creatine Kinase 362 291 Creatine Kinase MB 15.6 13.2 Creatine Kinase MB % 4.3 Troponin I 0.20 0.24 Vitamin B12 Level 1383 Thyroid Stimulating Hormone 0.400 3rd Gen Ethyl Alcohol Level LESS THAN 3 White Blood Count 16.6 Red Blood Count 4.70 Hemoglobin 13.8 Hematocrit 41.0 Mean Corpuscular Volume 87.2 Mean Corpuscular Hemoglobin 29.4 Mean Corpuscular Hemoglobin 33.8 Concent Red Cell Distribution Width 13.9 Platelet Count 281 Mean Platelet Volume 9.6 Neutrophils (%) (Auto) 87.2 Lymphocytes (%) (Auto) 3.8 Monocytes (%) (Auto) 9.0 Eosinophils (%) (Auto) 0.0 Basophils (%) (Auto) 0.0 Neutrophils # (Auto) 14.5 Lymphocytes # (Auto) 0.6 Monocytes # (Auto) 1.5 Eosinophils # (Auto) 0.0 Basophils # (Auto) 0.0 CBC Comment DIFF FINAL Differential Comment Sodium Level 143 Potassium Level 4.7 Chloride Level 106 Carbon Dioxide Level 23.0 Anion Gap 14 Blood Urea Nitrogen 142 Creatinine 6.49 Estimat Glomerular Filtration 8 Rate Random Glucose 167 Calcium Level 8.7 Triglycerides Level 101 Cholesterol Level 138 LDL Cholesterol 79 HDL Cholesterol 39.3 Cholesterol/HDL Ratio 3.51 Date/Time Procedure Status Source Growth 10/07/16 18:30 Aerobic Blood Culture Received Blood Peripheral Pending 10/07/16 18:30 Anaerobic Blood Culture Received Blood Peripheral Pending Result Diagram: 10/08/16 0625 10/08/16 0625 Imaging Last [address] 10/07/16 1037 Signed Impressions: Service Date/Time: Friday, October 07, 2016 10:55 - CONCLUSION: No acute disease. Simi Cuevas MD Chest X-Ray 10/07/16 1037 Signed Impressions: Service Date/Time: Friday, October 07, 2016 10:38 - CONCLUSION: No acute disease. Simi Cuevas MD Renal Ultrasound 10/07/16 0000 Signed Impressions: Service Date/Time: Friday, October 07, 2016 14:47 - CONCLUSION: 1. Moderate hydronephrosis of the left collecting system. 2. Distended urinary bladder. Vasiliy Owusu MD Assessment and Plan Assessment and Plan Pt is an 81 year old male with past medical history significant for CVA, CAD s/p CABG, hypertension, DM presenting due to recurrent falls, found to be in renal failure. Pt endorses vague history of chest pain, initial troponin elevated to 0.24. Nephrology has been consulted. Will rule out ACS. Problem List: (1) Renal failure Status: Acute Plan: On admission pt with significantly elevated Creatinine of 11.84. Baseline is around 1.10. he had obstruction likely from prostate and now is having great urine output. he may have post obstructive diuresis and is on fluids now Nephrology has been consulted, appreciate recommendations -See fluid below -Roe catheter placed, monitor urine output -Phosphorus elevated to 8.7 -Potassium elevated to 5.8, no associated EKG changes -Urine creatinine and sodium pending -UDS ordered because of more than 1 liter retention, will need longer term roe. can consider flomax and can follow up with urology as an outpt as he should not have roe removed for weeks at least. Imaging: Kidney ultrasound 10/07: Moderate hydronephrosis of the left collecting system. Distended urinary bladder. Indications for dialysis Fluid overload refractory to diuretics Hyperkalemia> 6.5 Metabolic acidosis pH<7.1 Signs of uremia: Pericarditis, neuropathy, decline in mental status (2) Leucocytosis Status: Acute Plan: On admission patient with elevated white blood cell count of 24.9 with left shift. Patient has been afebrile. Likely due to acute renal failure. better today -Lactic acid pending -Blood cultures ordered -UA with no signs of infection -Chest x-ray showing no acute disease -Continue to monitor for signs of infection (3) Weakness Status: Acute Plan: Likely due to renal failure, differential includes malnutrition versus hyperammonemia versus vitamin deficiency versus others. he was likely uremic and had falls and problems from that Will check the following: -Ammonia -Vitamin B-12 -Thiamine -Ethanol -See renal failure above -PT has been consulted (4) Elevated troponin Status: Acute Plan: Pt with history of CABG. On admission troponin elevated to 0.24, CKMD 17.8, CK 513,likely due to renal failure. Pt endorses history of left sided chest pain with radiation down his left arm. This has been intermittent over the past 2 weeks. He is unable to specify the last time he experienced chest pain. -Will rule out ACS -Will trend Troponin, CKMB, EKG x2 (5) Diabetes Status: Acute Plan: -Hold home Glipizide -Low dose SSI (6) Nutrition, metabolism, and development symptoms Status: Acute Plan: Fluids: Sodium bicarbonate 125 mls/hr Electrolytes: See renal failure above, continue to monitor Nutrition: Renal diet (7) No contraindication to deep vein thrombosis (DVT) prophylaxis Status: Acute Plan: -Heparin, will decrease to BID not TID for now Physician Certification 2 Midnight Certification Type: Admission for Inpatient Services Order for Inpatient Services The services are ordered in accordance with Medicare regulations or non- Medicare payer requirements, as applicable. In the case of services not specified as inpatient-only, they are appropriately provided as inpatient services in accordance with the 2-midnight benchmark. Estimated LOS (days): 4 4 days is the estimated time the patient will need to remain in the hospital, assuming treatment plan goals are met and no additional complications. Post-Hospital Plan: Not yet determined Problem Qualifiers (1) Leucocytosis: Qualified Code: D72.829 - Leukocytosis, unspecified type (2) Diabetes: Qualified Code: E11.8 - Type 2 diabetes mellitus with complication, unspecified usp insulin use status Mariana Mendoza MD Oct 08, 2016 10:50
[2016-10-08 13:33] LABS: HEMOGLOBIN A1a 1.7 %; HEMOGLOBIN Ao 82.1 %; HEMOGLOBIN LA1C 2.2 %; HEMOGLOBIN P3 6.2 %
--- NOTE | 2016-10-08 14:39 | HHI.NPPN ---
Subjective Additional Remarks feeling better today, some ongoing confusion Objective Data Data 10/07/16 10/08/16 19:00 07:00 Intake Total 4260 ml Output Total 7300 ml Balance -3040 ml Intake Oral 2140 ml IV Total 2120 ml Output Urine Total 7300 ml # Bowel Movements 1 Vital Signs Date Time Temp Pulse Resp B/P Pulse Ox O2 Delivery O2 Flow Rate FiO2 10/08/16 12:00 97.5 80 19 140/85 95 10/08/16 09:08 95 Nasal Cannula 2.00 10/08/16 08:00 97.3 84 17 157/70 94 10/08/16 04:00 Nasal Cannula 2.00 10/08/16 04:00 97.7 74 18 146/64 95 10/08/16 00:00 97.3 86 20 149/72 96 10/08/16 00:00 Nasal Cannula 2.00 10/07/16 23:26 80 10/07/16 23:04 85 10/07/16 20:00 Nasal Cannula 2.00 10/07/16 20:00 80 20 133/63 97 10/07/16 15:00 97.2 86 21 156/72 94 10/07/16 14:47 97 Nasal Cannula 2.00 -: 10/08/16 0625 10/08/16 0625 Microbiology 10/07/16 Aerobic Blood Culture - Preliminary, Resulted NO GROWTH IN 1 DAY 10/07/16 Anaerobic Blood Culture - Preliminary, Resulted NO GROWTH IN 1 DAY 10/07/16 Aerobic Blood Culture - Preliminary, Resulted NO GROWTH IN 1 DAY 10/07/16 Anaerobic Blood Culture - Preliminary, Resulted NO GROWTH IN 1 DAY Physical Exam General Appearance: Well Developed, Well Nourished, No Acute Distress Eyes Eye Exam: Pupils Equal Throat Throat Exam: Oral Mucosa [place] & Moist Neck Neck Exam: Neck Supple Pulmonary Resp Exam: Decreased Bases Cardiology CV Exam: Regular, Normal Sinus Rhythm, Good Perfusion Gastrointestinal/Abdomen GI Exam: Soft, Non-Tender, Bowel Sounds Present Genitourinary Exam: Clear Urine Integumentary Skin Exam: Dry, Intact Extremeties Extremities Exam: Trace Edema Neurologic Neuro Exam: Alert, Awake Assessment/Plan Problem List: (1) LYN (acute kidney injury) Plan: Creatinine 1.3 12/2015 Apparent post-obstructive LYN with hydronephrosis seen prior to roe. Creatinine 11.8 -> 6 today, 7L UOP yesterday. Continue roe catheter, flomax started. May consider evaluation eventually. Continues with IVFs. Will decrease rate to 100 cc/hour and continue monitor for improvement in urine output. (2) Metabolic acidosis Plan: Improving, continue HCO3 in IVFs on 1/2 NS + 75meq NaHCO3 at 100cc/hour now (3) HTN (hypertension) Plan: Bp stable (4) Hyperkalemia Plan: improved now, continue to monitor (5) Frequent falls Plan: unclear etiology, follow with primary team. May be part of uremia - continue to monitor. (6) CAD (coronary artery disease) Plan: continue to monitor Problem Qualifiers (1) HTN (hypertension): Qualified Code: I15.9 - Secondary hypertension Tr Bradford MD Oct 08, 2016 14:39
[2016-10-08] MEDS: ACETAMINOPHEN 325 MG TAB PO PRN (19:02)
[2016-10-09] VITALS (8 sets, daily range): BP systolic 135–199; BP diastolic 64–103; PULSE 72–83; RESP 16–22; TEMP 97–98.4; O2SAT 93–99
[2016-10-09] MEDS: SODIUM BICARBONATE 8.4% INJ 75 MEQ in SODIUM CHLOR 0.45% 1000 ML INJ 1,000 ML IV SCH ×2 (03:17→16:20)
[2016-10-09] MEDS: INSULIN ASPART SUPPLEMENTAL SCALE SQ SCH ×4 (05:28→21:00)
[2016-10-09 07:31] LABS: AUTOMATED NEUTROPHIL # 11.6 TH/MM3 (1.8-7.7); BASOPHIL % 0.1 % (0.0-2.0); EOSINOPHIL % 0.1 % (0.0-4.0); HEMATOCRIT 39.8 % (39.0-51.0); HEMO FLAGS DIFF FINAL; LYMPH % 5.9 % (9.0-44.0); LYMPHOCYTE # 0.8 TH/MM3 (1.0-4.8); MEAN CELL VOLUME 86.9 FL (80.0-100.0); MEAN CORPUSCULAR HEMOGLOBIN 28.9 PG (27.0-34.0); MEAN CORPUSCULAR HGB CONC 33.2 % (32.0-36.0); MONO % 10.8 % (0.0-8.0); NEUT % 83.1 % (16.0-70.0); PLATELET COUNT 250 TH/MM3 (150-450); RED BLOOD COUNT 4.57 MIL/MM3 (4.50-5.90); RED CELL DISTRIBUTION WIDTH 13.8 % (11.6-17.2)
[2016-10-09 07:55] LABS: POTASSIUM 4.1 MEQ/L (3.5-5.1)
[2016-10-09] MEDS: HEPARIN SODIUM - SQ 10,000 UNITS/ML VIAL SQ SCH ×2 (08:03→21:10)
[2016-10-09] MEDS: TAMSULOSIN HCL 0.4 MG CAP PO SCH (08:03)
[2016-10-09] MEDS: SERTRALINE HCL 100 MG TAB PO SCH (08:03)
[2016-10-09] MEDS: SODIUM CHLORIDE 0.9% FLUSH 10 ML FLUSH IV FLUSH SCH ×2 (08:05→21:09)
--- NOTE | 2016-10-09 09:31 | HHI.FPPN ---
Subjective Remarks Pt seen and examined this morning. No acute events overnight. BP ranging from 130-190s/70-100s. Pt reports feeling improved overall, not yet back to his baseline. Denies chest pain, Shortness of breath. He endorses lower abdominal discomfort. He is having regular bowel movements. (German Hicks MD R2) Objective Vitals Vital Signs Date Time Temp Pulse Resp B/P Pulse Ox O2 Delivery O2 Flow Rate FiO2 10/09/16 09:21 Room Air 10/09/16 08:00 98.4 74 19 158/85 94 10/09/16 04:00 97.0 73 18 199/103 93 10/09/16 04:00 98.3 82 16 136/78 99 10/09/16 04:00 Room Air 10/09/16 00:00 97.9 72 16 148/89 94 10/09/16 00:00 Room Air 10/09/16 00:00 97.9 72 16 148/81 94 10/08/16 20:50 97 21 10/08/16 20:12 80 10/08/16 20:00 97.6 72 20 151/71 94 10/08/16 20:00 Room Air 10/08/16 16:00 97.8 80 18 143/63 95 10/08/16 12:00 97.5 80 19 140/85 95 I/O 10/08/16 10/08/16 10/08/16 10/09/16 10/09/16 10/09/16 07:00 15:00 23:00 07:00 15:00 23:00 Intake Total 2557 ml 600 ml 1241 ml 906 ml Output Total 4600 ml 2200 ml 700 ml 910 ml Balance -2043 ml -1600 ml 541 ml -4 ml Intake Oral 1680 ml 600 ml IV Total 877 ml 1241 ml 906 ml Output Urine Total 4600 ml 2200 ml 700 ml 910 ml # Bowel Movements 2 (German Hicks MD R2) Result Diagram: 10/09/1634 10/09/16 06 Objective Remarks GENERAL: This is a well-nourished, well-developed patient, in no apparent distress. More alert and talkative. SKIN: No rashes, ecchymoses or lesions. Cool and dry. CARDIOVASCULAR: Regular rate and rhythm without murmurs, gallops, or rubs. RESPIRATORY: Clear to auscultation. Breath sounds equal bilaterally. No wheezes , rales, or rhonchi. GASTROINTESTINAL: Abdomen soft, lower abdominal tenderness, + bowel sounds. No hepato-splenomegaly, or palpable masses. No guarding. Umbilical hernia, reducible. MUSCULOSKELETAL: Extremities without clubbing, cyanosis, or edema. No joint effusion, or edema noted. No calf tenderness. Negative Homans sign bilaterally. NEUROLOGICAL: Alert and oriented to person place and time. Cranial nerves grossly intact. Motor and sensory grossly within normal limits, pt able to move all extremities. Slow speech. Pt better ability to answer questions directly. (German Hicks MD R2) A/P Assessment and Plan Pt is an 81 year old male with past medical history significant for CVA, CAD s/p CABG, hypertension, DM presenting due to recurrent falls, found to be in renal failure. Initially troponin was elevated, ACS was ruled out. Nephrology has remedios consulted. Recommended Graff catheter placement and IV fluids. Pt with significant urine output after catheter was placed. He continues to have good urine output with daily improvements in creatinine. Anticipate discharge to SNF once patient is medically stable. sdw Dr. Mendoza Discharge Planning Anticipate discharge in 1-3 days pending improvement in renal function and rehab placement. (German Hicks MD R2) Attending Attestation Patient seen and examined. Case reviewed and discussed with the resident team. Agree with plan of care as discussed with me and documented in the resident note. (Mariana Mendoza MD) Problem List: (1) Renal failure Status: Acute Plan: On admission pt with significantly elevated Creatinine of 11.84. Baseline is around 1.10. 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 He endorses lower abdominal discomfort, likely caused by bladder spasms from bladder returning to normal size. Creatinine continues to trend down: 11.84-->6.49-->2.88 Nephrology has been consulted, appreciate recommendations -See fluid below -Graff catheter in place, monitor urine output -Phosphorus elevated to 8.7 -Potassium elevated to 5.8, no associated EKG changes -Urine creatinine 81 and sodium 32. -Urine protein elevated to 25 -Urine protein/Creatinine ratio elevated to 0.31 -UDS negative -Pt will require Graff for several weeks due to urinary retention. -Pt will need to follow up with urology as an outpatient Imaging: Kidney ultrasound 10/07: Moderate hydronephrosis of the left collecting system. Distended urinary bladder. (2) Leucocytosis Status: Acute Plan: On admission patient with elevated white blood cell count of 24.9 with left shift. Patient has been afebrile. Likely due to acute renal failure. better today -Lactic acid pending -Blood cultures ordered -UA with no signs of infection -Chest x-ray showing no acute disease -Continue to monitor for signs of infection (3) Weakness Status: Acute Plan: Likely due to uremia from renal failure, differential also includes malnutrition versus hyperammonemia versus vitamin deficiency versus others. Will check the following: -Ammonia 18 -Vitamin B-12 elevated to 1383 -Thiamine pending -Ethanol less than 3 -See renal failure above -PT has been consulted (4) Elevated troponin Status: Acute Plan: Pt with history of CABG. On admission troponin elevated to 0.24, CKMD 17.8, CK 513,likely due to renal failure. Pt endorses history of left sided chest pain with radiation down his left arm. This had been intermittent over the past 2 weeks. -ACS ruled out -Pt has not had any additional episodes of acute chest pain. (5) Diabetes Status: Acute Plan: -Hold home Glipizide -Low dose SSI -Hemoglobin A1c elevated to 7.1 (6) Nutrition, metabolism, and development symptoms Status: Acute Plan: Fluids: Sodium bicarbonate 100 mls/hr Electrolytes: See renal failure above, continue to monitor Nutrition: Renal diet, will change to heart healthy once renal function improves Chronic medical problems HTN -Continue home Lisinopril Hyperlipidemia -Continue home atorvastatin (7) No contraindication to deep vein thrombosis (DVT) prophylaxis Status: Acute Plan: -Heparin (German Hicks MD R2) Problem Qualifiers (1) Leucocytosis: Qualified Code: D72.829 - Leukocytosis, unspecified type (2) Diabetes: Qualified Code: E11.8 - Type 2 diabetes mellitus with complication, unspecified lobsterman insulin use status German Hicks MD R2 Oct 09, 2016 09:31 Mariana Mendoza MD Oct 11, 2016 14:02
[2016-10-09] MEDS: LISINOPRIL 20 MG TAB PO SCH (11:04)
[2016-10-09 11:19] LABS: CALCIUM-PROTEIN CORRECTED 8.4 MG/DL (8.5-10.1)
--- NOTE | 2016-10-09 16:34 | HHI.NPPN ---
Subjective History of Present Illness 81-year-old male with a history of CVA as well as CAD status post coronary artery bypass graft, hypertension and diabetes. The patient apparently has had several recurrent falls at home and has been falling apparently more at home over the last week. Apparently, the patient lives in a mobile home and was in the bathroom and fell and hit the right side of his forehead. The patient denies any loss of consciousness or dizziness otherwise. However, he was on the floor for some time. It was unclear how long he had been on the floor. The patient apparently has had some low urine output for several days with some dark color. Additional Remarks Patient is alert, remain confused, off and on, has nausea, not eating well. Objective Data Data 10/08/16 10/09/16 19:00 07:00 Intake Total 600 ml 2147 ml Output Total 2200 ml 1610 ml Balance -1600 ml 537 ml Intake Oral 600 ml IV Total 2147 ml Output Urine Total 2200 ml 1610 ml # Bowel Movements 2 Vital Signs Date Time Temp Pulse Resp B/P Pulse Ox O2 Delivery O2 Flow Rate FiO2 10/09/16 12:00 97.9 73 19 162/80 93 10/09/16 09:21 Room Air 10/09/16 08:00 83 10/09/16 08:00 98.4 74 19 158/85 94 10/09/16 04:00 97.0 73 18 199/103 93 10/09/16 04:00 98.3 82 16 136/78 99 10/09/16 04:00 Room Air 10/09/16 00:00 97.9 72 16 148/89 94 10/09/16 00:00 Room Air 10/09/16 00:00 97.9 72 16 148/81 94 10/08/16 20:50 97 21 10/08/16 20:12 80 10/08/16 20:00 97.6 72 20 151/71 94 10/08/16 20:00 Room Air -: 10/09/16 0634 10/09/16 0634 Physical Exam General Appearance: Well Developed, Well Nourished, No Acute Distress Eyes Eye Exam: Pupils Equal Throat Throat Exam: Oral Mucosa Handley & Moist Neck Neck Exam: Neck Supple Pulmonary Resp Exam: Decreased Bases Cardiology CV Exam: Regular, Normal Sinus Rhythm, Good Perfusion Gastrointestinal/Abdomen GI Exam: Soft, Non-Tender, Bowel Sounds Present Genitourinary Exam: Clear Urine Integumentary Skin Exam: Dry, Intact Extremeties Extremities Exam: Trace Edema Neurologic Neuro Exam: Alert, Awake Assessment/Plan Problem List: (1) LYN (acute kidney injury) Plan: Creatinine 1.3 12/2015 Apparent post-obstructive LYN with hydronephrosis seen prior to roe. Creatinine was 11.8 on admission. Continue roe catheter, flomax started. Creatinine improving, UO is good. Continue IVF, and encourage oral intake. (2) Metabolic acidosis Plan: Improving, continue HCO3 in IVFs on 07/03 NS + 75meq NaHCO3 at 100cc/hour now (3) HTN (hypertension) Plan: Bp stable (4) Hyperkalemia Plan: improved now, continue to monitor (5) Frequent falls Plan: unclear etiology, follow with primary team. May be part of uremia - continue to monitor. (6) CAD (coronary artery disease) Plan: continue to monitor Problem Qualifiers (1) HTN (hypertension): Qualified Code: I15.9 - Secondary hypertension Marbin Cruz MD Oct 09, 2016 16:34
[2016-10-09] MEDS: ATORVASTATIN 80 MG TAB PO SCH (21:09)
[2016-10-10] VITALS (8 sets, daily range): BP systolic 146–181; BP diastolic 72–86; PULSE 63–79; RESP 12–20; TEMP 97.4–98.6; O2SAT 93–97
[2016-10-10] MEDS: SODIUM BICARBONATE 8.4% INJ 75 MEQ in SODIUM CHLOR 0.45% 1000 ML INJ 1,000 ML IV SCH ×2 (04:05→11:28)
[2016-10-10] MEDS: INSULIN ASPART SUPPLEMENTAL SCALE SQ SCH ×4 (06:08→21:00)
[2016-10-10] MEDS: SODIUM CHLORIDE 0.9% FLUSH 10 ML FLUSH IV FLUSH SCH ×2 (10:07→21:00)
[2016-10-10] MEDS: LISINOPRIL 20 MG TAB PO SCH (10:08)
[2016-10-10] MEDS: SERTRALINE HCL 100 MG TAB PO SCH (10:08)
[2016-10-10] MEDS: TAMSULOSIN HCL 0.4 MG CAP PO SCH (10:08)
[2016-10-10] MEDS: HEPARIN SODIUM - SQ 10,000 UNITS/ML VIAL SQ SCH ×2 (10:08→21:17)
--- NOTE | 2016-10-10 10:25 | HHI.FPPN ---
Subjective Remarks Mr Prakash is alert but thinks he is in [place]. He is unhappy about his urinary catheter and wants it removed. He is not 100% clear today but better than when he came in the hospital. No other complaints or problems voiced by pt. He needs help ambulating per PT who recommend a SNF at D/C and also OT. Objective Vitals Vital Signs Date Time Temp Pulse Resp B/P Pulse Ox O2 Delivery O2 Flow Rate FiO2 10/10/16 08:00 97.9 75 20 167/75 94 10/10/16 08:00 98.4 74 14 146/76 95 10/10/16 04:36 98.1 75 20 174/84 97 10/10/16 01:13 97.9 75 20 171/79 95 10/09/16 21:00 Room Air 10/09/16 20:34 98.1 76 22 135/67 95 10/09/16 20:33 98.1 76 22 135/67 95 10/09/16 20:00 75 10/09/16 16:00 97.7 76 18 140/64 94 10/09/16 12:00 97.9 73 19 162/80 93 I/O 10/09/16 10/09/16 10/09/16 10/10/16 10/10/16 10/10/16 07:00 15:00 23:00 07:00 15:00 23:00 Intake Total 906 ml 1567 ml 240 ml Output Total 910 ml 1050 ml 400 ml Balance -4 ml 517 ml -160 ml Intake Oral 720 ml 240 ml IV Total 906 ml 847 ml Output Urine Total 910 ml 1050 ml 400 ml # Bowel Movements 1 1 Result Diagram: 10/09/16 0634 10/09/16 0634 Objective Remarks GENERAL: This is a well-nourished, well-developed patient, having bladder spasms vs lower abdominal pain from catheter. More alert and talkative. Not perfectly clear or logical at this point. SKIN: No rashes, ecchymoses or lesions. Cool and dry. CARDIOVASCULAR: Regular rate and rhythm without murmurs, gallops, or rubs. RESPIRATORY: Clear to auscultation. Breath sounds equal bilaterally. No wheezes , rales, or rhonchi. GASTROINTESTINAL: Abdomen soft, lower abdominal tenderness, + bowel sounds. No hepato-splenomegaly, or palpable masses. No guarding. Umbilical hernia, reducible. MUSCULOSKELETAL: Extremities without clubbing, cyanosis, or edema. No joint effusion, or edema noted. No calf tenderness. Negative Homans sign bilaterally. NEUROLOGICAL: Alert and oriented to person being in a hospital in [place]. Cranial nerves grossly intact. Motor and sensory grossly within normal limits, pt able to move all extremities. Slow speech. Pt better ability to answer questions directly than on admission. Urinary Catheter: Yes Assessment to: Continue Graff insert reason: Obstruction/Retention Vascular Central Line Catheter: No A/P Assessment and Plan Pt is an 81 year old male with past medical history significant for CVA, CAD s/p CABG, hypertension, DM presenting due to recurrent falls, found to be in renal failure. Initially troponin was elevated, ACS was ruled out. Nephrology was consulted. Recommended Graff catheter placement and IV fluids. Pt with significant urine output after catheter was placed. He continues to have good urine output with daily improvements in creatinine. Anticipate discharge to SNF once patient is medically stable. He wants to leave the hospital but in my judgement he will need a SNF as he will need help with his catheter and follow up with Urology as well as he lives with an elderly girlfriend who has reported falls herself and will not be able to care for him per reports. Discharge Planning Anticipate discharge in 1-3 days pending improvement in renal function and rehab placement. Problem List: (1) Renal failure Status: Acute Plan: On admission pt with significantly elevated Creatinine of 11.84. Baseline is around 1.10. 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 He endorses lower abdominal discomfort, likely caused by bladder spasms from bladder returning to normal size. Creatinine continues to trend down: 11.84-->6.49-->2.88-->1.9 Nephrology has been consulted, appreciate recommendations -See fluid below -Graff catheter in place, monitor urine output -Phosphorus elevated to 8.7 initially -Potassium elevated to 5.8 initially, no associated EKG changes -Urine creatinine 81 and sodium 32. -Urine protein elevated to 25 -Urine protein/Creatinine ratio elevated to 0.31 -UDS negative -Pt will require Graff for several weeks at least due to urinary retention. -Pt will need to follow up with urology as an outpatient, he goes to [facility] so may want to follow with them vs a local urologist Imaging: Kidney ultrasound 10/07: Moderate hydronephrosis of the left collecting system. Distended urinary bladder. (2) Weakness Status: Acute Plan: Likely due to uremia from renal failure, differential also includes malnutrition versus hyperammonemia versus vitamin deficiency versus others. Will check the following: -Ammonia 18 -Vitamin B-12 elevated to 1383 -Thiamine pending -Ethanol less than 3 -See renal failure above -PT has been consulted and OT who both recommend rehab at D/C (3) Leucocytosis Status: Acute Plan: On admission patient with elevated white blood cell count of 24.9 with left shift. Patient has been afebrile. Likely due to acute renal failure and acute stress. better today -Lactic acid fine -Blood cultures done -UA with no signs of infection -Chest x-ray showing no acute disease -Continue to monitor for signs of infection (4) Diabetes Status: Acute Plan: -Hold home Glipizide -Low dose SSI -Hemoglobin A1c elevated to 7.1 (5) Elevated troponin Status: Acute Plan: Pt with history of CABG. On admission troponin elevated to 0.24, CKMD 17.8, CK 513,likely due to renal failure. Pt endorses history of left sided chest pain with radiation down his left arm. This had been intermittent over the past 2 weeks. -ACS ruled out -Pt has not had any additional episodes of acute chest pain. (6) Nutrition, metabolism, and development symptoms Status: Acute Plan: Fluids: Sodium bicarbonate 100 mls/hr, probably his iv fluids will be able to be discontinued soon as his renal fxn is so much better Electrolytes: See renal failure above, continue to monitor Nutrition: Renal diet, will change to heart healthy once renal function improves Chronic medical problems HTN -Continue home Lisinopril originally held but was restarted on the as his renal fxn was greatly improved Hyperlipidemia -Continue home atorvastatin (7) No contraindication to deep vein thrombosis (DVT) prophylaxis Status: Acute Plan: -Heparin Problem Qualifiers (1) Leucocytosis: Qualified Code: D72.829 - Leukocytosis, unspecified type (2) Diabetes: Qualified Code: E11.8 - Type 2 diabetes mellitus with complication, unspecified rat exterminator insulin use status Mariana Mendoza MD Oct 10, 2016 10:25
[2016-10-10 10:35] LABS: AUTOMATED NEUTROPHIL # 10.4 TH/MM3 (1.8-7.7); BASOPHIL % 0.1 % (0.0-2.0); EOSINOPHIL % 0.3 % (0.0-4.0); HEMATOCRIT 38.8 % (39.0-51.0); HEMO FLAGS DIFF FINAL; LYMPH % 7.6 % (9.0-44.0); MEAN CORPUSCULAR HEMOGLOBIN 29.6 PG (27.0-34.0); MEAN CORPUSCULAR HGB CONC 33.6 % (32.0-36.0); MONO % 8.9 % (0.0-8.0); NEUT % 83.1 % (16.0-70.0); PLATELET COUNT 242 TH/MM3 (150-450); RED BLOOD COUNT 4.41 MIL/MM3 (4.50-5.90); RED CELL DISTRIBUTION WIDTH 13.8 % (11.6-17.2); WHITE BLOOD COUNT 12.6 TH/MM3 (4.0-11.0)
[2016-10-10 10:46] LABS: BICARBONATE 30.3 MEQ/L (21.0-32.0); CALCIUM-PROTEIN CORRECTED 8.6 MG/DL (8.5-10.1); MAGNESIUM 1.7 MG/DL (1.5-2.5)
--- NOTE | 2016-10-10 16:45 | HHI.NPPN ---
Subjective History of Present Illness 81-year-old male with a history of CVA as well as CAD status post coronary artery bypass graft, hypertension and diabetes. The patient apparently has had several recurrent falls at home and has been falling apparently more at home over the last week. Apparently, the patient lives in a mobile home and was in the bathroom and fell and hit the right side of his forehead. The patient denies any loss of consciousness or dizziness otherwise. However, he was on the floor for some time. It was unclear how long he had been on the floor. The patient apparently has had some low urine output for several days with some dark color. Additional Remarks Patient is alert, clinically same,remain confused, off and on, has nausea, not eating well, no SOB. Objective Data Data 10/09/16 10/10/16 19:00 07:00 Intake Total 1567 ml 240 ml Output Total 1050 ml 400 ml Balance 517 ml -160 ml Intake Oral 720 ml 240 ml IV Total 847 ml Output Urine Total 1050 ml 400 ml # Bowel Movements 1 1 Vital Signs Date Time Temp Pulse Resp B/P Pulse Ox O2 Delivery O2 Flow Rate FiO2 10/10/16 16:00 97.4 63 12 181/86 94 10/10/16 12:00 98.6 78 18 146/77 93 10/10/16 09:00 93 Nasal Cannula 1.00 10/10/16 08:00 97.9 75 20 167/75 94 10/10/16 08:00 Room Air 10/10/16 08:00 98.4 74 14 146/76 95 10/10/16 04:36 98.1 75 20 174/84 97 10/10/16 01:13 97.9 75 20 171/79 95 10/09/16 21:00 Room Air 10/09/16 20:34 98.1 76 22 135/67 95 10/09/16 20:33 98.1 76 22 135/67 95 10/09/16 20:00 75 -: 10/10/16 0856 10/10/16 0856 Physical Exam General Appearance: Well Developed, Well Nourished, No Acute Distress Eyes Eye Exam: Pupils Equal Throat Throat Exam: Oral Mucosa Fuig & Moist Neck Neck Exam: Neck Supple Pulmonary Resp Exam: Decreased Bases Cardiology CV Exam: Regular, Normal Sinus Rhythm, Good Perfusion Gastrointestinal/Abdomen GI Exam: Soft, Non-Tender, Bowel Sounds Present Genitourinary Exam: Clear Urine Integumentary Skin Exam: Dry, Intact Extremeties Extremities Exam: Trace Edema Neurologic Neuro Exam: Alert, Awake Assessment/Plan Problem List: (1) LYN (acute kidney injury) Plan: Creatinine 1.3 12/2015 Apparent post-obstructive LYN with hydronephrosis seen prior to roe. Creatinine was 11.8 on admission. Continue Roe catheter, Flomax started. Creatinine continue to improve. Has gfood urine out put. Hcio3 is normal, change IVF. BP was elevated, and Lisinopril increased, will follow. (2) Metabolic acidosis Plan: Improving, continue HCO3 in IVFs on 07/03 NS + 75meq NaHCO3 at 100cc/hour now (3) HTN (hypertension) Plan: Bp stable (4) Hyperkalemia Plan: improved now, continue to monitor (5) Frequent falls Plan: unclear etiology, follow with primary team. May be part of uremia - continue to monitor. (6) CAD (coronary artery disease) Plan: continue to monitor Problem Qualifiers (1) HTN (hypertension): Qualified Code: I15.9 - Secondary hypertension Marbin Cruz MD Oct 10, 2016 16:45
[2016-10-10] MEDS: SODIUM CHLOR 0.9% 1000 ML INJ 1,000 ML IV SCH (17:37)
[2016-10-10] MEDS: ACETAMINOPHEN 325 MG TAB PO PRN (17:37)
[2016-10-10] MEDS: ATORVASTATIN 80 MG TAB PO SCH (21:17)
[2016-10-11] VITALS (10 sets, daily range): BP systolic 117–162; BP diastolic 63–82; PULSE 73–81; RESP 17–23; TEMP 97.3–98.2; O2SAT 93–98
[2016-10-11] MEDS: SODIUM CHLOR 0.9% 1000 ML INJ 1,000 ML IV SCH ×2 (04:40→16:44)
[2016-10-11] MEDS: ACETAMINOPHEN 325 MG TAB PO PRN ×2 (04:50→16:44)
[2016-10-11] MEDS: INSULIN ASPART SUPPLEMENTAL SCALE SQ SCH ×4 (05:58→20:43)
[2016-10-11] MEDS: SERTRALINE HCL 100 MG TAB PO SCH (08:35)
[2016-10-11] MEDS: TAMSULOSIN HCL 0.4 MG CAP PO SCH (08:35)
[2016-10-11] MEDS: HEPARIN SODIUM - SQ 10,000 UNITS/ML VIAL SQ SCH ×2 (08:36→20:43)
[2016-10-11] MEDS: LISINOPRIL 20 MG TAB PO SCH (08:36)
[2016-10-11] MEDS: SODIUM CHLORIDE 0.9% FLUSH 10 ML FLUSH IV FLUSH SCH ×2 (08:38→20:43)
[2016-10-11] MEDS ORDERED: BISACODYL 10 MG SUPP RECTAL ONE (10:45)
[2016-10-11] MEDS ORDERED: MAGNESIUM HYDROXIDE SUSP 30 ML CUP PO PRN (10:45)
[2016-10-11 10:53] LABS: MEAN CELL VOLUME 87.7 FL (80.0-100.0); MEAN CORPUSCULAR HEMOGLOBIN 28.6 PG (27.0-34.0); MEAN CORPUSCULAR HGB CONC 32.6 % (32.0-36.0); PLATELET COUNT 261 TH/MM3 (150-450); RED BLOOD COUNT 4.11 MIL/MM3 (4.50-5.90); RED CELL DISTRIBUTION WIDTH 13.5 % (11.6-17.2); REVIEW FLAG FINAL; WHITE BLOOD COUNT 14.3 TH/MM3 (4.0-11.0)
[2016-10-11 11:59] LABS: BICARBONATE 26.9 MEQ/L (21.0-32.0); POTASSIUM 3.6 MEQ/L (3.5-5.1)
--- NOTE | 2016-10-11 12:06 | HHI.FPPN ---
Subjective Remarks Patient seen and examined by medical team this morning. No acute events overnight with vital signs stable. Patient continues to complain of Graff catheter. Medical team thoroughly explained the need Graff catheter as he has obstructive symptoms. Patient very argumentative during the interview. He also complains of allover body aches, however this is likely due to the Graff catheter as further questioning would lead back to his discomfort due to the catheter placement. He also states that he has not had a bowel movement despite feeling the urge to go. He denies any fevers, chills, shortness of breath, chest pain, NVD, or calf tenderness. (Blayne Goins MD R1) Objective Vitals Vital Signs Date Time Temp Pulse Resp B/P Pulse Ox O2 Delivery O2 Flow Rate FiO2 10/11/16 08:49 96 Nasal Cannula 1.00 10/11/16 08:45 97.5 73 23 117/63 96 10/11/16 08:01 97.5 73 20 117/63 96 10/11/16 08:00 Nasal Cannula 2.00 10/11/16 04:00 97.3 75 18 160/80 94 10/11/16 00:00 97.8 74 18 159/74 95 10/10/16 21:00 Room Air 10/10/16 20:00 97.5 78 18 164/72 94 10/10/16 20:00 79 10/10/16 18:19 75 10/10/16 16:00 97.4 63 12 181/86 94 I/O 10/10/16 10/10/16 10/10/16 10/11/16 10/11/16 10/11/16 07:00 15:00 23:00 07:00 15:00 23:00 Intake Total 240 ml 2095 ml 240 ml 360 ml Output Total 400 ml 425 ml 425 ml 850 ml Balance -160 ml 1670 ml -185 ml -490 ml Intake Oral 240 ml 480 ml 240 ml 360 ml IV Total 1615 ml Output Urine Total 400 ml 425 ml 425 ml 850 ml # Bowel Movements 1 0 0 0 (Blayne Goins MD R1) Result Diagram: 10/11/16 1003 10/11/16 1003 Objective Remarks GENERAL: 81 y/o patient, having bladder spasms vs lower abdominal pain from catheter. More alert and talkative. Not perfectly clear or logical at this point. SKIN: No rashes, ecchymoses or lesions. Cool and dry. CARDIOVASCULAR: Regular rate and rhythm without murmurs, gallops, or rubs. RESPIRATORY: Clear to auscultation bilaterally with no CRW. No increased work of breathing. GASTROINTESTINAL: Abdomen soft, lower abdominal tenderness with positive bowel sounds. MUSCULOSKELETAL: Extremities without clubbing or cyanosis. No calf tenderness bilaterally. UROGENITAL: Graff catheter in place with no signs of hemorrhage. NEUROLOGICAL: Awake alert and oriented 3. Patient very argumentative with normal speech and judgment. (Blayne Goins MD R1) A/P Assessment and Plan Pt is an 81 year old male with past medical history significant for CVA, CAD s/p CABG, hypertension, DM presenting due to recurrent falls, found to be in renal failure. Initially troponin was elevated, ACS was ruled out. Nephrology was consulted. Recommended Graff catheter placement and IV fluids. Pt with significant urine output after catheter was placed. He continues to have good urine output with daily improvements in creatinine. Anticipate discharge to SNF once patient is medically stable. He wants to leave the hospital but in my judgement he will need a SNF as he will need help with his catheter and follow up with Urology as well as he lives with an elderly girlfriend who has reported falls herself and will not be able to care for him per reports. Discharge Planning Anticipate discharge pending improvement in renal function and rehab placement. DW: Dr. Mendoza, Dr. Chicho Hicks (Blayne Goins MD R1) Attending Attestation Patient seen and examined. Case reviewed and discussed with the resident team. Agree with plan of care as discussed with me and documented in the resident note. (Mariana Mendoza MD) Problem List: (1) Renal failure Status: Acute Plan: On admission pt with significantly elevated Creatinine of 11.84. Baseline is around 1.10. 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 He endorses lower abdominal discomfort, likely caused by bladder spasms from bladder returning to normal size. Creatinine continues to trend down: 11.84-->6.49-->2.88-->1.9-->1.67 Nephrology has been consulted, appreciate recommendations -See fluid below -Graff catheter in place, monitor urine output -Phosphorus elevated to 8.7 initially -Potassium elevated to 5.8 initially, no associated EKG changes -Urine creatinine 81 and sodium 32. -Urine protein elevated to 25 -Urine protein/Creatinine ratio elevated to 0.31 -UDS negative -Pt will require Graff for several weeks at least due to urinary retention. -Pt will need to follow up with Urology as an outpatient, he goes to the [facility] so may want to follow with them vs a local urologist Imaging: Kidney ultrasound 10/07: Moderate hydronephrosis of the left collecting system. Distended urinary bladder. (2) Weakness Status: Acute Plan: Likely due to uremia from renal failure, differential also includes malnutrition versus hyperammonemia versus vitamin deficiency versus others. Will check the following: -Ammonia 18 -Vitamin B-12 elevated to 1383 -Thiamine 234 -Ethanol less than 3 -See renal failure above -PT has been consulted and OT who both recommend rehab at D/C (3) Leucocytosis Status: Acute Plan: On admission patient with elevated white blood cell count of 24.9 with left shift. Patient has been afebrile. Likely due to acute renal failure and acute stress. better today -Lactic acid fine -Blood cultures done -UA with no signs of infection -Chest x-ray showing no acute disease -Continue to monitor for signs of infection (4) Diabetes Status: Acute Plan: -Hold home Glipizide -Low dose SSI -Hemoglobin A1c elevated to 7.1 (5) Elevated troponin Status: Acute Plan: Pt with history of CABG. On admission troponin elevated to 0.24, CKMD 17.8, CK 513,likely due to renal failure. Pt endorses history of left sided chest pain with radiation down his left arm. This had been intermittent over the past 2 weeks. -ACS ruled out -Pt has not had any additional episodes of acute chest pain. (6) Nutrition, metabolism, and development symptoms Status: Acute Plan: Fluids: NS 84 mls/hr, probably his iv fluids will be able to be discontinued soon as his renal fxn is so much better Electrolytes: See renal failure above, continue to monitor Nutrition: Renal diet, will change to heart healthy once renal function improves Chronic medical problems HTN -Continue home Lisinopril originally held but was restarted on the as his renal fxn was greatly improved Hyperlipidemia -Continue home atorvastatin (7) No contraindication to deep vein thrombosis (DVT) prophylaxis Status: Acute Plan: -Heparin (Blayne Goins MD R1) Problem Qualifiers (1) Leucocytosis: Qualified Code: D72.829 - Leukocytosis, unspecified type (2) Diabetes: Qualified Code: E11.8 - Type 2 diabetes mellitus with complication, unspecified lob[place] insulin use status Blayne Goins MD R1 Oct 11, 2016 12:06 Mariana Mendoza MD Oct 14, 2016 13:39
--- NOTE | 2016-10-11 17:09 | HHI.NPPN ---
Subjective History of Present Illness 81-year-old male with a history of CVA as well as CAD status post coronary artery bypass graft, hypertension and diabetes. The patient apparently has had several recurrent falls at home and has been falling apparently more at home over the last week. Apparently, the patient lives in a mobile home and was in the bathroom and fell and hit the right side of his forehead. The patient denies any loss of consciousness or dizziness otherwise. However, he was on the floor for some time. It was unclear how long he had been on the floor. The patient apparently has had some low urine output for several days with some dark color. Additional Remarks Patient is alert, clinically same, sitting on chair, not eating well. Objective Data Data 10/10/16 10/11/16 19:00 07:00 Intake Total 2095 ml 600 ml Output Total 425 ml 1275 ml Balance 1670 ml -675 ml Intake Oral 480 ml 600 ml IV Total 1615 ml Output Urine Total 425 ml 1275 ml # Bowel Movements 0 0 Vital Signs Date Time Temp Pulse Resp B/P Pulse Ox O2 Delivery O2 Flow Rate FiO2 10/11/16 12:09 98.2 76 17 162/82 96 10/11/16 08:49 96 Nasal Cannula 1.00 10/11/16 08:45 97.5 73 23 117/63 96 10/11/16 08:01 97.5 73 20 117/63 96 10/11/16 08:00 Nasal Cannula 2.00 10/11/16 04:00 97.3 75 18 160/80 94 10/11/16 00:00 97.8 74 18 159/74 95 10/10/16 21:00 Room Air 10/10/16 20:00 97.5 78 18 164/72 94 10/10/16 20:00 79 10/10/16 18:19 75 -: 10/11/16 1003 10/11/16 1003 Physical Exam General Appearance: Well Developed, Well Nourished, No Acute Distress Eyes Eye Exam: Pupils Equal Throat Throat Exam: Oral Mucosa Colstrip & Moist Neck Neck Exam: Neck Supple Pulmonary Resp Exam: Decreased Bases Cardiology CV Exam: Regular, Normal Sinus Rhythm, Good Perfusion Gastrointestinal/Abdomen GI Exam: Soft, Non-Tender, Bowel Sounds Present Genitourinary Exam: Clear Urine Integumentary Skin Exam: Dry, Intact Extremeties Extremities Exam: Trace Edema Neurologic Neuro Exam: Alert, Awake Assessment/Plan Problem List: (1) LYN (acute kidney injury) Plan: Creatinine 1.3 12/2015 Apparent post-obstructive LYN with hydronephrosis seen prior to roe. Creatinine was 11.8 on admission. Continue Roe catheter, Flomax started. Creatinine continue to improve. Has good urine out put. Continue IVF. Encourage oral intake. (2) Metabolic acidosis Plan: Improving, continue HCO3 in IVFs on 07/03 NS + 75meq NaHCO3 at 100cc/hour now (3) HTN (hypertension) Plan: Bp stable (4) Hyperkalemia Plan: improved now, continue to monitor (5) Frequent falls Plan: unclear etiology, follow with primary team. May be part of uremia - continue to monitor. (6) CAD (coronary artery disease) Plan: continue to monitor Problem Qualifiers (1) HTN (hypertension): Qualified Code: I15.9 - Secondary hypertension Marbin Cruz MD Oct 11, 2016 17:09
[2016-10-11] MEDS: ATORVASTATIN 80 MG TAB PO SCH (20:43)
[2016-10-12] VITALS (7 sets, daily range): BP systolic 152–186; BP diastolic 71–88; PULSE 69–84; RESP 20–24; TEMP 97.7–98; O2SAT 93–96
[2016-10-12] MEDS: SODIUM CHLOR 0.9% 1000 ML INJ 1,000 ML IV SCH ×2 (03:37→16:25)
[2016-10-12] MEDS: INSULIN ASPART SUPPLEMENTAL SCALE SQ SCH ×3 (04:50→16:00)
[2016-10-12 07:33] LABS: MEAN CELL VOLUME 87.7 FL (80.0-100.0); MEAN CORPUSCULAR HEMOGLOBIN 29.6 PG (27.0-34.0); MEAN CORPUSCULAR HGB CONC 33.7 % (32.0-36.0); PLATELET COUNT 273 TH/MM3 (150-450); RED BLOOD COUNT 3.99 MIL/MM3 (4.50-5.90); RED CELL DISTRIBUTION WIDTH 13.1 % (11.6-17.2); REVIEW FLAG FINAL; WHITE BLOOD COUNT 13.5 TH/MM3 (4.0-11.0)
[2016-10-12 07:47] LABS: BICARBONATE 25.8 MEQ/L (21.0-32.0); POTASSIUM 3.6 MEQ/L (3.5-5.1)
[2016-10-12] MEDS: LISINOPRIL 20 MG TAB PO SCH (08:30)
[2016-10-12] MEDS: TAMSULOSIN HCL 0.4 MG CAP PO SCH (08:30)
[2016-10-12] MEDS: SERTRALINE HCL 100 MG TAB PO SCH (08:30)
[2016-10-12] MEDS: HEPARIN SODIUM - SQ 10,000 UNITS/ML VIAL SQ SCH (08:31)
[2016-10-12] MEDS: ACETAMINOPHEN 325 MG TAB PO PRN (08:31)
[2016-10-12] MEDS: SODIUM CHLORIDE 0.9% FLUSH 10 ML FLUSH IV FLUSH SCH (08:32)
--- NOTE | 2016-10-12 11:28 | HHI.FPPN ---
Subjective Remarks Patient seen and examined this morning by medical team. No acute events overnight with vital signs stable. Patient continues to complain of urinary catheter, however pain has decreased since yesterday. His constipation is also resolved after suppository was administered. He has no other complaints and denies any fevers, chills, shortness of breath, chest pain, NVD, or calf tenderness. (Blayne Goins MD R1) Objective Vitals Vital Signs Date Time Temp Pulse Resp B/P Pulse Ox O2 Delivery O2 Flow Rate FiO2 10/12/16 08:00 97.8 69 20 186/88 93 10/12/16 07:54 Room Air 10/12/16 07:54 78 10/12/16 04:00 98.0 76 22 170/84 95 10/12/16 00:00 97.7 75 24 152/71 96 10/11/16 22:04 21 10/11/16 20:55 Room Air 10/11/16 20:26 73 10/11/16 20:02 98.0 74 19 160/72 98 10/11/16 18:20 78 10/11/16 16:02 97.3 81 18 154/73 93 10/11/16 12:09 98.2 76 17 162/82 96 I/O 10/11/16 10/11/16 10/11/16 10/12/16 10/12/16 10/12/16 07:00 15:00 23:00 07:00 15:00 23:00 Intake Total 360 ml 1063 ml 952 ml 1632 ml Output Total 850 ml 1400 ml 700 ml 1050 ml Balance -490 ml -337 ml 252 ml 582 ml Intake Oral 360 ml 360 ml 280 ml 960 ml IV Total 703 ml 672 ml 672 ml Output Urine Total 850 ml 1400 ml 700 ml 1050 ml # Bowel Movements 0 2 0 (Blayne Goins MD R1) Result Diagram: 10/12/16 0600 10/12/16 0545 Objective Remarks GENERAL: 81 y/o patient, having bladder spasms vs lower abdominal pain from catheter. SKIN: No rashes, ecchymoses or lesions. Cool and dry. CARDIOVASCULAR: Regular rate and rhythm without murmurs, gallops, or rubs. RESPIRATORY: Clear to auscultation bilaterally with no CRW. No increased work of breathing. GASTROINTESTINAL: Abdomen soft, nontender with positive bowel sounds. Tenderness on exam yesterday has resolved. MUSCULOSKELETAL: Extremities without clubbing or cyanosis. No calf tenderness bilaterally. UROGENITAL: Graff catheter in place with no signs of hemorrhage. NEUROLOGICAL: Awake alert and oriented 3. Patient very argumentative with normal speech and judgment. (Blayne Goins MD R1) A/P Assessment and Plan Pt is an 81 year old male with past medical history significant for CVA, CAD s/p CABG, hypertension, DM presenting due to recurrent falls, found to be in renal failure. Initially troponin was elevated, ACS was ruled out. Nephrology was consulted. Recommended Graff catheter placement and IV fluids. Pt with significant urine output after catheter was placed. He continues to have good urine output with daily improvements in creatinine. Anticipate discharge to SNF once patient is medically stable. He wants to leave the hospital but in my judgement he will need a SNF as he will need help with his catheter and follow up with Urology as well as he lives with an elderly girlfriend who has reported falls herself and will not be able to care for him per reports. Discharge Planning Anticipate discharge pending renal recommendations and placement for rehabilitation. DW: Dr. Mendoza, Dr. Chicho Hicks, Dr. Miranda (Blayne Goins MD R1) Attending Attestation Patient seen and examined. Case reviewed and discussed with the resident team. Agree with plan of care as discussed with me and documented in the resident note. (Mariana Mendoza MD) Problem List: (1) Renal failure Status: Acute Plan: On admission pt with significantly elevated Creatinine of 11.84. Baseline is around 1.10. 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 He endorses lower abdominal discomfort, likely caused by bladder spasms from bladder returning to normal size. Creatinine continues to trend down: 11.84-->6.49-->2.88-->1.9-->1.67-->1.47 Nephrology has been consulted, appreciate recommendations -See fluid below -Graff catheter in place, monitor urine output -Phosphorus elevated to 8.7 initially, resolved -Potassium elevated to 5.8 initially, no associated EKG changes, resolved -Urine creatinine 81 and sodium 32. -Urine protein elevated to 25 -Urine protein/Creatinine ratio elevated to 0.31 -UDS negative -Pt will require Graff for several weeks at least due to urinary retention. -Pt will need to follow up with Urology as an outpatient, he goes to the [facility] so may want to follow with them vs a local urologist Imaging: Kidney ultrasound 10/07: Moderate hydronephrosis of the left collecting system. Distended urinary bladder. (2) Weakness Status: Acute Plan: Likely due to uremia from renal failure, differential also includes malnutrition versus hyperammonemia versus vitamin deficiency versus others. Will check the following: -Ammonia 18 -Vitamin B-12 elevated to 1383 -Thiamine 234 -Ethanol less than 3 -See renal failure above -PT has been consulted and OT who both recommend rehab at D/C (3) Leucocytosis Status: Acute Plan: On admission patient with elevated white blood cell count of 24.9 with left shift. Patient has been afebrile. Likely due to acute renal failure and acute stress. -Lactic acid fine -Blood cultures negative to date -UA with no signs of infection -Chest x-ray showing no acute disease -Continue to monitor for signs of infection (4) Diabetes Status: Acute Plan: -Hold home Glipizide -Low dose SSI -Hemoglobin A1c elevated to 7.1 (5) Elevated troponin Status: Acute Plan: Pt with history of CABG. On admission troponin elevated to 0.24, CKMD 17.8, CK 513,likely due to renal failure. Pt endorses history of left sided chest pain with radiation down his left arm. This had been intermittent over the past 2 weeks. -ACS ruled out -Pt has not had any additional episodes of acute chest pain. (6) Nutrition, metabolism, and development symptoms Status: Acute Plan: Fluids: NS 84 mls/hr, probably his iv fluids will be able to be discontinued soon as his renal fxn is so much better Electrolytes: See renal failure above, continue to monitor Nutrition: Renal diet, will change to heart healthy once renal function improves Chronic medical problems HTN -Continue home Lisinopril originally held but was restarted on the as his renal fxn was greatly improved Hyperlipidemia -Continue home atorvastatin Depression -Continue Zoloft (7) No contraindication to deep vein thrombosis (DVT) prophylaxis Status: Acute Plan: -Heparin (Blayne Goins MD R1) Problem Qualifiers (1) Leucocytosis: Qualified Code: D72.829 - Leukocytosis, unspecified type (2) Diabetes: Qualified Code: E11.8 - Type 2 diabetes mellitus with complication, unspecified prison insulin use status Blayne Goins MD R1 Oct 12, 2016 11:28 Mariana Mendoza MD Oct 14, 2016 13:43
--- NOTE | 2016-10-12 15:32 | HHI.DCPOC ---
Discharge Care Plan Diagnosis: (1) Renal failure Goals to Promote Your Health * To prevent worsening of your condition and complications * To maintain your health at the optimal level Directions to Meet Your Goals Take your medications as prescribed Follow your dietary instruction Follow activity as directed Keep your appointments as scheduled Take your immunizations and boosters as scheduled If your symptoms worsen call your PCP, if no PCP go to Urgent Care Center or Emergency Room Smoking is Dangerous to Your Health. Avoid second hand smoke Call the 24-hour hour crisis hotline for domestic abuse at Blayne Goins MD R1 Oct 12, 2016 15:32
[2016-10-12] MEDS ORDERED: TAMS5CAP PO (15:35)
--- NOTE | 2016-10-12 16:12 | HHI.DS ---
Discharge Summary Admission Date Oct 07, 2016 at 12:14 Discharge Date: Oct 12, 2016 Admitting Diagnosis RENAL FAILURE, FREQUENT FALLS (1) Renal failure Diagnosis: Principal Plan: On admission pt with significantly elevated Creatinine of 11.84. Baseline is around 1.10. 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 He endorses lower abdominal discomfort, likely caused by bladder spasms from bladder returning to normal size. Creatinine continues to trend down: 11.84-->6.49-->2.88-->1.9-->1.67-->1.47 Nephrology has been consulted, appreciate recommendations -See fluid below -Roe catheter in place, monitor urine output -Phosphorus elevated to 8.7 initially, resolved -Potassium elevated to 5.8 initially, no associated EKG changes, resolved -Urine creatinine 81 and sodium 32. -Urine protein elevated to 25 -Urine protein/Creatinine ratio elevated to 0.31 -UDS negative -Pt will require Roe for several weeks at least due to urinary retention. -Pt will need to follow up with Urology as an outpatient, he goes to the [facility] so may want to follow with them vs a local urologist Imaging: Kidney ultrasound 10/07: Moderate hydronephrosis of the left collecting system. Distended urinary bladder. (2) Weakness Diagnosis: Principal Plan: Likely due to uremia from renal failure, differential also includes malnutrition versus hyperammonemia versus vitamin deficiency versus others. Will check the following: -Ammonia 18 -Vitamin B-12 elevated to 1383 -Thiamine 234 -Ethanol less than 3 -See renal failure above -PT has been consulted and OT who both recommend rehab at D/C (3) Leucocytosis Diagnosis: Principal Plan: On admission patient with elevated white blood cell count of 24.9 with left shift. Patient has been afebrile. Likely due to acute renal failure and acute stress. -Lactic acid fine -Blood cultures negative to date -UA with no signs of infection -Chest x-ray showing no acute disease -Continue to monitor for signs of infection -Peripheral smear ordered (4) Diabetes Diagnosis: Secondary Plan: -Hold home Glipizide -Low dose SSI -Hemoglobin A1c elevated to 7.1 (5) Elevated troponin Diagnosis: Principal Plan: Pt with history of CABG. On admission troponin elevated to 0.24, CKMD 17.8, CK 513,likely due to renal failure. Pt endorses history of left sided chest pain with radiation down his left arm. This had been intermittent over the past 2 weeks. -ACS ruled out -Pt has not had any additional episodes of acute chest pain. (6) Nutrition, metabolism, and development symptoms Diagnosis: Principal Plan: Fluids: NS 84 mls/hr, probably his iv fluids will be able to be discontinued soon as his renal fxn is so much better Electrolytes: See renal failure above, continue to monitor Nutrition: Renal diet, will change to heart healthy once renal function improves Chronic medical problems HTN -Continue home Lisinopril originally held but was restarted on the as his renal fxn was greatly improved Hyperlipidemia -Continue home atorvastatin Depression -Continue Zoloft (7) No contraindication to deep vein thrombosis (DVT) prophylaxis Diagnosis: Principal Plan: -Heparin Brief History Mr Prakash is an 81 year old male with past medical history significant for CVA, CAD s/p CABG, hypertension, DM presenting due to recurrent falls, found to be in renal failure. Pt presented to the ED with a family friend. Pt reports that he has been falling more frequently over the past week and has fallen 5 times. He reports that in the morning he was in the bathroom when he fell and hit the right side of his forehead. He denies loss of consciousness or chest pain prior to fall. He is unable to recall the events leading up to the fall or describe how he fell. He reports that his girlfriend who lives with him has also fallen recently. His daughter who was in [place] was informed that he fell and encouraged him to go to the ED. [facility] was called and brought pt to the emergency department. He has been feeling progressively more weak over the past week. He is able to produce urine, but reports low urine volume and dark color, unsure of any blood. Over the past 2 weeks he has been having chest pain located on the left side fo his chest with radiation down his left arm. Pain is intermittent and he is not able to describe it. He denies current chest pain, shortness of and abdominal pain. Pt has a difficult time answering direct questions and history was difficult to obtain on admission. Family friend who is present in the room reports that pt is acting more strange than usual and is not at his baseline. After a roe catheter was placed he had an immediate liter of urine into the bag and another liter plus over the next hour. His creatinine is way down today from 11 to 6 and he continues to make a good amount of urine. He is clearer mentally than he was last evening when I saw him but is still slightly confused though he can answer questions about his family and living situation better today than last night. CBC/BMP: 10/12/16 0600 10/12/16 0545 Significant Findings Laboratory Tests Test 10/10/16 10/11/16 10/12/16 10/12/16 08:56 10:03 05:45 06:00 White Blood Count 12.6 TH/MM3 14.3 TH/MM3 13.5 TH/MM3 (4.0-11.0) (4.0-11.0) (4.0-11.0) Red Blood Count 4.41 MIL/MM3 4.11 MIL/MM3 3.99 MIL/MM3 (4.50-5.90) (4.50-5.90) (4.50-5.90) Hematocrit 38.8 % 36.0 % 35.0 % (39.0-51.0) (39.0-51.0) (39.0-51.0) Neutrophils (%) (Auto) 83.1 % (16.0-70.0) Lymphocytes (%) (Auto) 7.6 % (9.0-44.0) Monocytes (%) (Auto) 8.9 % (0.0-8.0) Neutrophils # (Auto) 10.4 TH/MM3 (1.8-7.7) Monocytes # (Auto) 1.1 TH/MM3 (0-0.9) Blood Urea Nitrogen 48 MG/DL (7-18) 33 MG/DL (7-18) 25 MG/DL (7-18) Creatinine 1.98 MG/DL 1.67 MG/DL 1.47 MG/DL (0.60-1.30) (0.60-1.30) (0.60-1.30) Estimat Glomerular Filtration 33 ML/MIN (>89) 40 ML/MIN (>89) 46 ML/MIN (>89) Rate Random Glucose 160 MG/DL 157 MG/DL 128 MG/DL (74-106) (74-106) (74-106) Calcium Level 8.0 MG/DL 7.8 MG/DL 7.9 MG/DL (8.5-10.1) (8.5-10.1) (8.5-10.1) Total Protein 6.1 GM/DL (6.4-8.2) Hemoglobin 11.7 GM/DL 11.8 GM/DL (13.0-17.0) (13.0-17.0) PE at Discharge GENERAL: 81 y/o patient, having bladder spasms vs lower abdominal pain from catheter. SKIN: No rashes, ecchymoses or lesions. Cool and dry. CARDIOVASCULAR: Regular rate and rhythm without murmurs, gallops, or rubs. RESPIRATORY: Clear to auscultation bilaterally with no CRW. No increased work of breathing. GASTROINTESTINAL: Abdomen soft, nontender with positive bowel sounds. Tenderness on exam yesterday has resolved. MUSCULOSKELETAL: Extremities without clubbing or cyanosis. No calf tenderness bilaterally. UROGENITAL: Roe catheter in place with no signs of hemorrhage. NEUROLOGICAL: Awake alert and oriented 3. Patient very argumentative with normal speech and judgment. Hospital Course Patient was admitted to the medical team and nephrology was consulted. Patient was found to have left hydronephrosis and a distended urinary bladder. Roe catheter was placed with approximately 1.6 L of urine immediately obtained suggesting possible obstruction. He was also started on IV fluids for his acute kidney injury. The patient's BUN and creatinine dropped significantly each day after admission. Ultimately his BUN dropped to 25 from 198 and his creatinine dropped to 1.47 from 11.84. On the day of his discharge, physical therapy recommended continued therapy at a rehabilitation facility. He was discharged on 10/12/16 to the rehabilitation facility with his roe catheter in place. He was advised to follow up with urology for outpatient management of his obstruction and was started on Flomax to assist with urination. He will likely [facility] in [facility] for his referral to urology. Pt Condition on Discharge: Stable Discharge Disposition: Discharge to SNF Discharge Instructions DIET: Follow Instructions for: Renal Failure Diet Activities you can perform: Regular-No Restrictions Follow up Referrals: Nephrology - 2 Weeks with Marbin Cruz MD PCP Follow-up - 2 Weeks Urology - 2 Weeks New Medications: Tamsulosin (Flomax) 0.4 Mg Cap 0.4 MG PO DAILY #30 Ref 1 CAP Continued Medications: Atorvastatin (Atorvastatin) 80 Mg Tab 80 MG PO HS Cholesterol Management #30 Ref 0 TAB Glipizide (Glipizide) 5 Mg Tab 5 MG PO DAILY Take 30 minutes before a meal Blood Sugar Management #30 Ref 0 TAB Isosorbide Mononitrate (Isosorbide Mononitrate) 10 Mg Tab 10 MG PO BID Take 2 doses 7 hours apart. Prevent Chest Pain #60 TAB Lisinopril (Lisinopril) 40 Mg Tab 40 MG PO DAILY Blood Pressure Management #30 Ref 0 TAB Sertraline (Sertraline) 100 Mg Tab 100 MG PO DAILY #30 Ref 0 TAB Blayne Goins MD R1 Oct 12, 2016 16:12
--- NOTE | 2016-10-12 18:46 | HHI.NPPN ---
Subjective History of Present Illness 81-year-old male with a history of CVA as well as CAD status post coronary artery bypass graft, hypertension and diabetes. The patient apparently has had several recurrent falls at home and has been falling apparently more at home over the last week. Apparently, the patient lives in a mobile home and was in the bathroom and fell and hit the right side of his forehead. The patient denies any loss of consciousness or dizziness otherwise. However, he was on the floor for some time. It was unclear how long he had been on the floor. The patient apparently has had some low urine output for several days with some dark color. Additional Remarks Patient is alert, no SOB, still appetite is low. Objective Data Data 10/11/16 10/12/16 19:00 07:00 Intake Total 1063 ml 2584 ml Output Total 1400 ml 1750 ml Balance -337 ml 834 ml Intake Oral 360 ml 1240 ml IV Total 703 ml 1344 ml Output Urine Total 1400 ml 1750 ml # Bowel Movements 2 0 Vital Signs Date Time Temp Pulse Resp B/P Pulse Ox O2 Delivery O2 Flow Rate FiO2 10/12/16 17:09 152/74 10/12/16 15:09 84 10/12/16 12:00 97.8 72 20 152/74 94 10/12/16 08:00 97.8 69 20 186/88 93 10/12/16 07:54 Room Air 10/12/16 07:54 78 10/12/16 04:00 98.0 76 22 170/84 95 10/12/16 00:00 97.7 75 24 152/71 96 10/11/16 22:04 21 10/11/16 20:55 Room Air 10/11/16 20:26 73 10/11/16 20:02 98.0 74 19 160/72 98 -: 10/12/16 0600 10/12/16 0545 Physical Exam General Appearance: Well Developed, Well Nourished, No Acute Distress Eyes Eye Exam: Pupils Equal Throat Throat Exam: Oral Mucosa [place] & Moist Neck Neck Exam: Neck Supple Pulmonary Resp Exam: Decreased Bases Cardiology CV Exam: Regular, Normal Sinus Rhythm, Good Perfusion Gastrointestinal/Abdomen GI Exam: Soft, Non-Tender, Bowel Sounds Present Genitourinary Exam: Clear Urine Integumentary Skin Exam: Dry, Intact Extremeties Extremities Exam: Trace Edema Neurologic Neuro Exam: Alert, Awake Assessment/Plan Problem List: (1) LYN (acute kidney injury) Plan: Creatinine 1.3 12/2015 Apparent post-obstructive LYN with hydronephrosis seen prior to roe. Creatinine was 11.8 on admission. Continue Roe catheter, Flomax started. Creatinine continue to improve. Has good urine out put. Continue IVF. Avoid Nephrotoxins and follow the BMP. (2) Metabolic acidosis Plan: Improving, continue HCO3 in IVFs on 07/03 NS + 75meq NaHCO3 at 100cc/hour now (3) HTN (hypertension) Plan: Bp stable (4) Hyperkalemia Plan: improved now, continue to monitor (5) Frequent falls Plan: unclear etiology, follow with primary team. May be part of uremia - continue to monitor. (6) CAD (coronary artery disease) Plan: continue to monitor Problem Qualifiers (1) HTN (hypertension): Qualified Code: I15.9 - Secondary hypertension Marbin Cruz MD Oct 12, 2016 18:46
== END 2016-10-12 19:05 | DRG 683 ==
LOC: NEPC 10:13 → NEDA 12:14 → N04B 14:15
PROVIDERS: ADMIT Family Medicine; ATTEND Family Medicine
PROC: 0T9B70Z Drainage of Bladder with Drainage Device, Via Natural or Artificial Opening (ICD-10-PCS; principal; 2016-10-07)
DX: N17.9 Acute kidney failure, unspecified (principal); N13.8 Other obstructive and reflux uropathy; E87.2 Acidosis; M62.82 Rhabdomyolysis; E11.8 Type 2 diabetes mellitus with unspecified complications; K59.00 Constipation, unspecified; N13.39 Other hydronephrosis; E87.5 Hyperkalemia; I10 Essential (primary) hypertension; N40.1 Benign prostatic hyperplasia with lower urinary tract symptoms; R29.6 Repeated falls; N32.89 Other specified disorders of bladder; D72.829 Elevated white blood cell count, unspecified; E78.5 Hyperlipidemia, unspecified; I25.10 Atherosclerotic heart disease of native coronary artery without angina pectoris; I25.2 Old myocardial infarction; R32 Unspecified urinary incontinence; F32.9 Major depressive disorder, single episode, unspecified; F41.9 Anxiety disorder, unspecified; W01.198A Fall on same level from slipping, tripping and stumbling with subsequent striking against other object, initial encounter; Y92.002 Bathroom of unspecified non-institutional (private) residence as the place of occurrence of the external cause; Z79.84 Long term (current) use of oral hypoglycemic drugs; Z86.73 Personal history of transient ischemic attack (TIA), and cerebral infarction without residual deficits; Z87.891 Personal history of nicotine dependence; Z95.1 Presence of aortocoronary bypass graft
CPT/HCPCS: 70450; 71010; 76775; 76937; 80048; 80053; 80061; 80307; 81001; 82140; 82550; 82552; 82570; 82607; 82948; 83036; 83605; 83735; 84100; 84155; 84156; 84300; 84425; 84443; 84484; 85025; 85027; 85060; 87040; 93005; 96360; J1644; J1815; J7030

== ENCOUNTER 2016-10-16 21:25 | Observation (INO) | payer MEDICARE, OTHER ==
[~2016-10-16 21:25] MED LIST changes: -ASPI325T PO; +ATOR1TAB18 PO; -ATOR80TA PO; -FISH1000 PO; -FLUO.1%O OP; -GLIP5 PO; +GLIP5TAB8 PO; -GLUCTAB OR; +ISOS10TA3 PO; -ISOS30 OR; -LISI-366 PO; +LISI40TA PO; +TAMS5CAP PO; -TRAZ100 PO
[2016-10-16 21:30] VITALS: BP 166/76; PULSE 73; RESP 19; TEMP 98.5; O2SAT 97
--- NOTE | 2016-10-16 23:18 | PD ---
HPI Chief Complaint: Complaint Time Seen by Provider: 22:04 Travel History International Travel<30 days: No Contact w/Intl Traveler<30days: No Traveled to known affect area: No History of Present Illness HPI The patient's 81. He was discharged from [place] to the [facility] after an admission for recurrent falls and renal failure with urinary retention. He had a complete recovery of the kidney function. Today at 2 PM his Graff catheter was removed at the care home facility. He has been unable to urinate since and arrives to the ER due to urinary retention. At time of interview the patient requests to be discharged home offering no specific medical complaint. PFSH Past Medical History Arthritis: No Asthma: No Autoimmune Disease: No Anxiety: Yes (takes zoloft) Depression: No Heart Rhythm Problems: No Cancer: No Cardiovascular Problems: Yes High Cholesterol: Yes Chemotherapy: No Chest Pain: Yes Congestive Heart Failure: No COPD: No Cerebrovascular Accident: Yes (2 strokes) Diabetes: Yes Diminished Hearing: No Endocrine: Yes Gastrointestinal Disorders: No GERD: No Genitourinary: No Hiatal Hernia: No Heparin Induced Thrombocytopen: No Hypertension: Yes Immune Disorder: No Implanted Vascular Access Dvce: No Kidney Stones: No Musculoskeletal: Yes Neurologic: Yes Psychiatric: No Reproductive: No Respiratory: No Migraines: No Myocardial Infarction: Yes (23 YEARS AGO ) Radiation Therapy: No Renal Failure: No Seizures: No Sickle Cell Disease: No Sleep Apnea: No Thyroid Disease: No Ulcer: No Past Surgical History Abdominal Surgery: No AICD: No Arteriovenous Shunt: No Cardiac Surgery: Yes (triple bypass 1995) Coronary Artery Bypass Graft: Yes (TRIPLE BYPASS) Ear Surgery: No Endocrine Surgery: No Eye Surgery: No Genitourinary Surgery: No Gynecologic Surgery: No Insulin Pump: No Joint Replacement: No Oral Surgery: Yes (dental implants) Pacemaker: No Thoracic Surgery: No Other Surgery: Yes (FISSURE A TEENAGER) Social History Alcohol Use: No Tobacco Use: No Substance Use: No Allergies-Medications (Allergen,Severity, Reaction): Coded Allergies: No Known Allergies (Unverified , 12/13/15) Reported Meds & Prescriptions Reported Meds & Active Scripts Active Flomax (Tamsulosin HCl) 0.4 Mg Cap 0.4 Mg PO DAILY Reported Glipizide 5 Mg Tab 5 Mg PO DAILY Take 30 minutes before a meal Sertraline (Sertraline HCl) 100 Mg Tab 100 Mg PO DAILY Atorvastatin (Atorvastatin Calcium) 80 Mg Tab 80 Mg PO HS Isosorbide Mononitrate 10 Mg Tab 10 Mg PO BID Take 2 doses 7 hours apart. Lisinopril 40 Mg Tab 40 Mg PO DAILY Review of Systems Except as stated in HPI: all other systems reviewed are Neg General / Constitutional: No: Fever Genitourinary: Positive: Other (retention) Physical Exam Narrative GENERAL: 81-year-old male well-nourished well-developed SKIN: Focused skin assessment warm/dry. HEAD: Atraumatic. Normocephalic. EYES: Pupils equal and round. No scleral icterus. No injection or drainage. ENT: No nasal bleeding or discharge. Mucous membranes pink and moist. NECK: Trachea midline. No JVD. CARDIOVASCULAR: Regular rate and rhythm. No murmur appreciated. RESPIRATORY: No accessory muscle use. Clear to auscultation. Breath sounds equal bilaterally. GASTROINTESTINAL: Minimal distention suprapubic abdomen. Soft. GENITOURINARY: There is blood at the urethral meatus. MUSCULOSKELETAL: No obvious deformities. No clubbing. No cyanosis. No edema. NEUROLOGICAL: Awake and alert. No obvious cranial nerve deficits. Motor grossly within normal limits. Normal speech. PSYCHIATRIC: Appropriate mood and affect; insight and judgment normal. Data Data Last Documented VS Vital Signs Date Time Temp Pulse Resp B/P Pulse Ox O2 Delivery O2 Flow Rate FiO2 10/16/16 21:30 98.5 73 19 166/76 97 Vital signs reviewed Orders Urinary Catheter Insert/Apply (10/16/16 22:04) Basic Metabolic Panel (Bmp) (10/16/16 23:17) Complete Blood Count With Diff (10/16/16 23:17) Iv Access Insert/Monitor (10/16/16 23:17) Ecg Monitoring (10/16/16 23:17) Oximetry (10/16/16 23:17) Sodium Chloride 0.9% Flush (Ns Flush) (10/16/16 23:30) Ct Abd/Pel W/O Iv Contrast (10/16/16 23:17) Urinalysis - C+S If Indicated (10/16/16 23:51) Ceftriaxone Inj (Rocephin Inj) (10/17/16 00:45) Acetaminophen (Tylenol) (10/17/16 00:45) Consult Urology (10/17/16 ) Admit Order (Ed Use Only) (10/17/16 00:51) Labs Laboratory Tests Test 10/16/16 23:35 White Blood Count 13.4 TH/MM3 Red Blood Count 4.15 MIL/MM3 Hemoglobin 12.3 GM/DL Hematocrit 35.8 % Mean Corpuscular Volume 86.3 FL Mean Corpuscular Hemoglobin 29.6 PG Mean Corpuscular Hemoglobin 34.3 % Concent Red Cell Distribution Width 13.4 % Platelet Count 308 TH/MM3 Mean Platelet Volume 8.7 FL Neutrophils (%) (Auto) 83.7 % Lymphocytes (%) (Auto) 6.5 % Monocytes (%) (Auto) 8.8 % Eosinophils (%) (Auto) 0.8 % Basophils (%) (Auto) 0.2 % Neutrophils # (Auto) 11.2 TH/MM3 Lymphocytes # (Auto) 0.9 TH/MM3 Monocytes # (Auto) 1.2 TH/MM3 Eosinophils # (Auto) 0.1 TH/MM3 Basophils # (Auto) 0.0 TH/MM3 CBC Comment DIFF FINAL Differential Comment Sodium Level 140 MEQ/L Potassium Level 3.3 MEQ/L Chloride Level 103 MEQ/L Carbon Dioxide Level 28.3 MEQ/L Anion Gap 9 MEQ/L Blood Urea Nitrogen 15 MG/DL Creatinine 1.16 MG/DL Estimat Glomerular Filtration 60 ML/MIN Rate Random Glucose 104 MG/DL Calcium Level 7.9 MG/DL MDM Medical Decision Making Medical Screen Exam Complete: Yes Emergency Medical Condition: Yes Medical Record Reviewed: Yes Differential Diagnosis UTI, urinary retention, renal failure Narrative Course At the bedside a 16 [place] daily catheter was inserted to the hub. No urine was collected. The catheter was removed and bloody discharge was observed. Ultrasound was placed over the bladder and a second attempt at catheterization was performed unsuccessfully and no catheter could be seen in the bladder lumen. CT was performed showing a mass inside the bladder. A mass could also be seen by ultrasound. There is bilateral hydro-. Renal function is preserved as we can see below. The case was discussed with Dr. Jennings of urology who will evaluate the patient in the morning for placement of catheter. Case discussed with Eduardo Lyn and the patient will be admitted. The case was discussed with the patient and his daughter. CBC & BMP Diagram 10/16/16 23:35 Last 24 hours Impressions Abdomen/Pelvis CT 10/16/16 0997 Signed Impressions: Service Date/Time: Sunday, October 16, 2016 23:55 - CONCLUSION: There is some perinephric and periureteral stranding on the left side without evidence of stone. There is a mass in the inferior left side of the bladder possibly originating from the prostate could be causing some partial obstruction. 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 Diagnosis Primary Impression: Urinary retention Additional Impression: Bladder mass Admitting Information Admitting Physician Requests: Admit Tr Pike MD Oct 16, 2016 23:18
[2016-10-16] MEDS ORDERED: SODIUM CHLORIDE 0.9% FLUSH 10 ML FLUSH IV FLUSH PRN (23:30)
[2016-10-17 00:05] LABS: AUTOMATED NEUTROPHIL # 11.2 TH/MM3 (1.8-7.7); BASOPHIL % 0.2 % (0.0-2.0); EOSINOPHIL # 0.1 TH/MM3 (0-0.4); EOSINOPHIL % 0.8 % (0.0-4.0); HEMATOCRIT 35.8 % (39.0-51.0); HEMO FLAGS DIFF FINAL; LYMPH % 6.5 % (9.0-44.0); LYMPHOCYTE # 0.9 TH/MM3 (1.0-4.8); MEAN CELL VOLUME 86.3 FL (80.0-100.0); MEAN CORPUSCULAR HEMOGLOBIN 29.6 PG (27.0-34.0); MEAN CORPUSCULAR HGB CONC 34.3 % (32.0-36.0); MONO % 8.8 % (0.0-8.0); NEUT % 83.7 % (16.0-70.0); PLATELET COUNT 308 TH/MM3 (150-450); RED BLOOD COUNT 4.15 MIL/MM3 (4.50-5.90); RED CELL DISTRIBUTION WIDTH 13.4 % (11.6-17.2); WHITE BLOOD COUNT 13.4 TH/MM3 (4.0-11.0)
--- NOTE | 2016-10-17 00:23 | RADRPT ---
EXAM DATE/TIME: 10/16/2016 23:55 [facility] COMPARISON: No previous studies available for comparison. INDICATIONS : Urinary retention. Possible bladder mass. ORAL CONTRAST: No oral contrast ingested. RADIATION DOSE: 12.38 CTDIvol (mGy) MEDICAL HISTORY : Cerebrovascular disease. Cardiovascular disease Diabetes mellitus type 2. SURGICAL HISTORY : CABG ENCOUNTER: Initial ACUITY: 1 day PAIN SCALE: 0/10 LOCATION: abdomen TECHNIQUE: Volumetric scanning of the abdomen and pelvis was performed. Using automated exposure control and ad justment of the mA and/or kV according to patient size, radiation dose was kept as low as reasonably achievable to obtain optimal diagnostic quality images. FINDINGS: LOWER LUNGS: Small areas of ground glass infiltrate within the right middle lobe in the left lower lobe could be p neumonitis LIVER: Homogeneous density without lesion. There is no dilation of the biliary tree. Few calcified gallsto miracle. SPLEEN: Normal size without lesion. PANCREAS: Within normal limits. KIDNEYS: There is some perinephric stranding and moderate hydronephrosis of the left kidney. The ureter is als o dilated all the way down to the left UVJ. The right ureter is mildly prominent and there is mild hy dronephrosis on the right side but no perinephric or periureteral stranding. I don't see definite mercedes al stones however the right kidney does appear to at least been previously partially obstructed. ADRENAL GLANDS: Within normal limits. VASCULAR: Small aortic aneurysm measuring 3.4 cm distally. BOWEL/MESENTERY: The stomach, small bowel, and colon demonstrate no acute abnormality. There is no free intraperitone al air or fluid. ABDOMINAL WALL: Small fatty umbilical hernia. RETROPERITONEUM: There is no lymphadenopathy. BLADDER: Tiny amount of air within the bladder. Soft tissue mass in the left side of the inferior bladder I salmeron spect originating from the prostate may be affecting the left UVJ. REPRODUCTIVE: Within normal limits. INGUINAL: Fatty inguinal prominence on the right side. MUSCULOSKELETAL: Sclerotic T10 and throughout the right ilium likely metastatic disease CONCLUSION: There is some perinephric and periureteral stranding on the left side without evidence of stone. Ther e is a mass in the inferior left side of the bladder possibly originating from the prostate could be causing some partial obstruction. 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 This report was verified electronically.
[2016-10-17 00:30] LABS: BICARBONATE 28.3 MEQ/L (21.0-32.0); POTASSIUM 3.3 MEQ/L (3.5-5.1)
[2016-10-17] MEDS ORDERED: cefTRIAXone INJ 1,000 MG in SODIUM CHLORIDE 0.9% INJ 100 ML IV ONE (00:45)
[2016-10-17] MEDS ORDERED: ACETAMINOPHEN 325 MG TAB PO ONE (00:45)
[2016-10-17] MEDS ORDERED: SODIUM CHLORIDE 0.9% FLUSH 10 ML FLUSH IV FLUSH PRN (01:45)
[2016-10-17] MEDS ORDERED: NALOXONE HCL 0.4 MG/ML AMP IV PRN (01:45)
[2016-10-17] MEDS ORDERED: ACETAMINOPHEN 325 MG TAB PO PRN (01:45)
[2016-10-17] MEDS ORDERED: ONDANSETRON HCL 4 MG/2 ML VIAL IVP PRN (01:45)
[2016-10-17] MEDS ORDERED: POTASSIUM CHLORIDE 20 MEQ CONTROLLED RELEASE TAB PO ONE (01:45)
[2016-10-17 03:00] VITALS: BP 110/58; PULSE 77; RESP 17; O2SAT 95
[2016-10-17 07:10] VITALS: BP 126/64; PULSE 78; RESP 14; O2SAT 97
[2016-10-17 08:41] VITALS: BP 121/68; PULSE 67; RESP 21; TEMP 98; O2SAT 95
[2016-10-17] MEDS ORDERED: SODIUM CHLORIDE 0.9% FLUSH 10 ML FLUSH IV FLUSH SCH (09:00)
--- NOTE | 2016-10-17 10:02 | HP.UPD ---
H&P Update Note This is a 81-year-old male seen and examined in room 93 in the emergency department today. He came in with urinary retention. He is suspected to have a bladder tumor. He was seen by urologist Dr. Jennings. A Graff catheter Was inserted. The patient is to keep his Graff and to see Dr. Jennings in the office in 1 week's time for cystoscopy. The case was discussed with the patient 's daughter. His PSA is elevated. There is a possibility of malignancy. His been discharged to shelter in stable condition Tiffany Lozoya MD Oct 17, 2016 10:01
--- NOTE | 2016-10-17 10:07 | MH ---
cc: MARCIN DENNIS MD DATE OF ADMISSION: 10/17/2016 DATE OF 1935 CHIEF COMPLAINT Unable to void history. PRESENT ILLNESS The patient is an 81-year-old white male who has been struggling with urinary retention and falls. He was recently discharged from [place] to [facility] according to the record and the patient had his Graff catheter removed at the facility yesterday. After the catheter was removed, the patient has been unable to void and has been sent to the emergency room for evaluation. The patient states that he has had multiple catheters in the past and has been struggling with urinary retention, but he is unable to give me a time frame. The patient is alert, answers simple questions, but is a poor historian. The patient states that he is originally from [place] and has been in the [facility] for 7-1/2 years and hopes to return with his girlfriend back to [place] once he gets to feeling better. PAST MEDICAL HISTORY Includes: 1. Anxiety 2. Hyperlipidemia 3. History of chest pain 4. CVA x2 5. Diabetes 6. Hypertension 7. Arthritis 8. CA PAST SURGICAL HISTORY 1. Triple bypass 2. Dental implants 3. Fissure as a teenager This history is being gathered and reviewed from the record due to the patient being a poor historian. ALLERGIES No known allergies. MEDICATIONS 1. Glipizide 2. Sertraline 3. Atorvastatin 4. Isosorbide 5. Lisinopril SOCIAL HISTORY The patient is single. He does have a significant girlfriend. Denies any tobacco, alcohol or illicit drug use. REVIEW OF SYSTEMS Positive for urinary retention and dysuria. Positive for debility, otherwise systems are negative or unremarkable. PHYSICAL EXAM VITAL SIGNS: Temperature is 98, pulse 67, respirations 20, blood pressure 121/68, O2 sat 95 on room air. Currently on admission, the patient's blood pressure was 166/76, low was noted to be 110/58. GENERAL: An obese well-nourished white male who looks to be his stated age resting on a stretcher, responds to simple questions and verbal stimuli. SKIN: Slightly pale, but warm and dry. HEENT: Atraumatic, normocephalic. HERBERT. Mucous membranes are moist and pink. No scleral icterus. NECK: Supple. HEART: S1-S2 regular rate and rhythm. No murmurs, rubs or gallops. RESPIRATORY: Essentially clear anteriorly and posteriorly with no wheezes, rales or rhonchi. GI: Abdomen is soft, round, active bowel sounds some mild tenderness in his lower abdominal area. : Blood around the urethral meatus, dried, no active bleeding. MUSCULOSKELETAL: No pedal edema. Moves his extremities with purpose. He has equal hand ball shagger. NEUROLOGIC: He is alert. Speech is clear. Hard of hearing. Good historian for generalized symptoms. PSYCHIATRIC: Appropriate mood and affect. Insight and judgment is normal. DIAGNOSTIC DATA WBC count 13.4, RBC 4.15, hemoglobin 12.3, hematocrit 35.8, platelet count 308, neutrophil percentage auto 83.7, lymphocyte 6.5, monocyte 8.8, eosinophils 0.8. Chemistry sodium 140, potassium 3.3, chloride 103, carbon dioxide 28.3, amnion gap 9, BUN 15, creatinine 1.16, GFR 60, calcium 7.9. IMAGING STUDIES Shows abdominal CT with periureteral and perinephric stranding of the left side without evidence of stone. There is a mass in the inferior left side of the bladder possibly originating from the prostate could be causes some partial obstruction. 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 ASSESSMENT/PLAN 1. Urinary retention with partial obstruction 2. Bladder mass 3. Debility with frequent falls 4. Acute kidney injury 5. Hypertension 6. Diabetes mellitus type 2, controlled. 7. 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 PLAN 1. Our plan is to admit. 2. Monitor vital signs q4 and p.r.n. 3. Admit to observation. 4. The patient will be on bedrest and if he needs to be out of bed, he calls for assistance. 5. Gentle hydration. 6. Reconcile medications. 7. The patient was started on Rocephin IV in the emergency room and given supplemental potassium 20 mEq x one. 8. Urology has been consulted for their expert opinion. In the emergency room, staff was unable to place a regular catheter in place. Urology in this a.m. for guided Garff catheter placement. 9. In the emergency room, the patient received one dose of Tylenol. 10. ECG monitoring. 11. SCD's for DVT prophylaxis. 12. Gentle hydration. 13. He has been placed on a 2000 calories ADA diet. 14. We will monitor his blood sugars with Accu-Chek's and recheck his labs in the morning. 15. We will monitor accurate intake and output. 16. Abnormal abdominal pelvic CT was noted with some possible mass and obstructions, as well as possible metastatic disease. We will evaluate further treatment needs and Discuss with Dr. Dennis. Currently the patient is full code, full aggressive care and we will follow. Dictated by LYNN Perry MD SUSAN Clark/ANITA /9:17 AM /10:20 AM
--- NOTE | 2016-10-17 11:21 | MB ---
cc: LEVAR SCOTT DATE OF CONSULTATION 10/17/2016 HISTORY OF PRESENT ILLNESS This is a pleasant 81-year-old male who [facility] after a Graff catheter was removed yesterday during the day and he was unable to urinate. Apparently the patient has had multiple Graff catheters in over time due to urinary retention and has been unable to urinate in the past. He has not seen a urologist for this problem. PAST MEDICAL HISTORY 1. Diabetes. 2. Cerebrovascular accident. 3. Coronary artery disease with myocardial infarction. 4. Hypertension. 5. Arthritis. 6. High cholesterol. 7. Anxiety. PAST SURGICAL HISTORY 1. Triple bypass graft in 1995. 2. Dental implant surgery. 3. Anal fissure repair as a teenager. SOCIAL HISTORY Denies any alcohol, tobacco or substance use at present. ALLERGIES He has no allergies. MEDICATIONS For medications please refer to the chart. FAMILY HISTORY Denies family history of prostate cancer. He also denies any history of bladder cancer or kidney cancer. REVIEW OF SYSTEMS A 12-point review of systems was taken and is negative per the HPI. PHYSICAL EXAMINATION VITALS: Temperature 98.5, pulse is 78, respiratory rate 14, 126/64 blood pressure, 97% on room air. GENERAL: He is well-developed, well-nourished 81-year-old male in no acute stress. HEENT: Normocephalic, atraumatic. Pupils equal round and reactive to light. Extraocular movements intact. NECK: Supple. HEART: Regular rate and rhythm. LUNGS: Breath sounds clear bilaterally. ABDOMEN: Soft. Bladder distended on exam. Mild tenderness is noted over the bladder. : Uncircumcised phallus. Testes are descended. EXTREMITIES: Show no cyanosis, clubbing or edema. PROCEDURE NOTE At the bedside he was prepped and draped in the usual sterile fashion and then filiforms and followers were placed followed by urethral dilatation, followed by Graff placement over a wire. He tolerated the procedure well and then 1600 cc of clear urine were drained from the bladder. LABORATORY FINDINGS White count 13.4, hemoglobin 12.3, hematocrit 35.8, platelet count of 308. Sodium 140, potassium 3.3, chloride 103, CO2 is 28.3, BUN 15, creatinine 1.1, glucose of 104. IMAGING STUDY CT scan of the abdomen and pelvis noted some perinephric and periureteral stranding on the left side without evidence of a stone and the suggestion of a mass within the bladder possibly originating from the prostate which could be causing some partial obstruction. Suspected metastatic disease of T10 and the right ilium was noted. ASSESSMENT This is an 81-year-old male with acute urinary retention with bladder outlet obstruction, Graff catheter placed at the bedside after urethral dilatation performed, Graff in place now draining clear urine at [address] scan suggests metastatic disease. Will need a workup. Will check a PSA. The patient will require cystoscopy which can be done as an outpatient while maintaining the Graff catheter for now. If no evidence of bladder mass or prostate cancer is noted, the patient may benefit from a suprapubic tube on an outpatient basis. Thank you very much for the consult and allowing me to participate in the care of this patient. Levar LUQUE/CARISSA /8:50 AM /11:04 AM
[2016-10-17 12:13] VITALS: BP 147/66; PULSE 81; RESP 18; TEMP 97.8; O2SAT 97
[2016-10-17] MEDS ORDERED: DEXTROSE 50% IN WATER 50 ML VIAL(D50) IV PUSH PRN (12:15)
[2016-10-17] MEDS ORDERED: GLUCAGON 1 MG/ML VIAL OTHER PRN (12:15)
[2016-10-17] MEDS ORDERED: POTA10CA PO (14:10)
[2016-10-17] MEDS ORDERED: CEFT250T8 PO (14:10)
[2016-10-17] MEDS ORDERED: INSULIN NovoLIN REGULAR SUPPLEMENTAL SCALE SQ SCH (16:00)
--- NOTE | 2016-10-17 17:11 | HHI.DS ---
Discharge Summary Admission Date Oct 17, 2016 at 00:54 Discharge Date: Oct 17, 2016 Admitting Diagnosis Urinary Obstruction; Bladder Mass Procedures catheter insetion per Urology with guided wire and dilation. Brief History patient was an 81-year-old white male who has been struggling with urinary retention and falls. He was recently discharged from [place] to [facility] according to the record and the patient had his Roe catheter removed at the facility yesterday. After the catheter was removed, the patient had been unable to void and has been sent to the emergency room for evaluation. The patient states that he had multiple catheters in the past and has been struggling with urinary retention, but he was unable to give me a time frame. The patient is alert, answers simple questions, but is a poor historian. The patient stated that he is originally from [place] and has been in the [facility] for 7[facility]2 years and hopes to return with his girlfriend back to [place] once he gets to feeling better. CBC/BMP: 10/16/16 2335 10/16/16 2335 Significant Findings Laboratory Tests Test 10/16/16 10/17/16 23:35 10:51 White Blood Count 13.4 TH/MM3 (4.0-11.0) Red Blood Count 4.15 MIL/MM3 (4.50-5.90) Hemoglobin 12.3 GM/DL (13.0-17.0) Hematocrit 35.8 % (39.0-51.0) Neutrophils (%) (Auto) 83.7 % (16.0-70.0) Lymphocytes (%) (Auto) 6.5 % (9.0-44.0) Monocytes (%) (Auto) 8.8 % (0.0-8.0) Neutrophils # (Auto) 11.2 TH/MM3 (1.8-7.7) Lymphocytes # (Auto) 0.9 TH/MM3 (1.0-4.8) Monocytes # (Auto) 1.2 TH/MM3 (0-0.9) Potassium Level 3.3 MEQ/L (3.5-5.1) Estimat Glomerular Filtration 60 ML/MIN (>89) Rate Calcium Level 7.9 MG/DL (8.5-10.1) Prostate Specific Antigen 4.90 NG/ML (0.00-4.00) Imaging Last Impressions Abdomen/Pelvis CT 4/17/17 8428 Signed Impressions: Service Date/Time: Sunday, October 16, 2016 23:55 - CONCLUSION: There is some perinephric and periureteral stranding on the left side without evidence of stone. There is a mass in the inferior left side of the bladder possibly originating from the prostate could be causing some partial obstruction. Suspected metastatic disease of T10 and the right ilium Maninder Rooney MD PE at Discharge GENERAL: An obese well-nourished white male who looks to be his stated age resting on a stretcher, responds to simple questions and verbal stimuli. SKIN: Slightly pale, but warm and dry. HEENT: Atraumatic, normocephalic. HERBERT. Mucous membranes are moist and pink. No scleral icterus. NECK: Supple. HEART: S1-S2 regular rate and rhythm. No murmurs, rubs or gallops. RESPIRATORY: Essentially clear anteriorly and posteriorly with no wheezes, rales or rhonchi. GI: Abdomen is soft, round, active bowel sounds some mild tenderness in his lower abdominal area. : Blood around the urethral meatus, dried, no active bleeding. MUSCULOSKELETAL: No pedal edema. Moves his extremities with purpose. He has equal hand card puncher. NEUROLOGIC: He is alert. Speech is clear. Hard of hearing. Good historian for generalized symptoms. PSYCHIATRIC: Appropriate mood and affect. Insight and judgment is normal. Hospital Course Diagnosis used for his plan of care. <24hr. stay 1. Urinary retention with partial obstruction 2. Bladder mass 3. Debility with frequent falls 4. Acute kidney injury 5. Hypertension 6. Diabetes mellitus type 2, controlled. 7. 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 Monitor vital signs q4 and p.r.n., Urology consult done for his expert opinion. Roe catheter placed in patient with guidewire assistance and dilatation. Patient tolerated procedure fairly well. Patient received gentle hydration and IV Rocephin. He was also given supplemental potassium. Patient was evaluated per Dr. Lozoya, and felt that he could return back to his SNF. Patient was monitored per ECG, and was fed ADA breakfast. Will need to be followed on an outpatient basis per urology. Pt Condition on Discharge: Good Discharge Disposition: Discharge to SNF Discharge Instructions DIET: Follow Instructions for: Heart Healthy Diet Activities you can perform: Weight Bearing as Eva Other Activity Instructions: keep roe in place until seen by urology New Medications: Cefuroxime (Ceftin) 250 Mg Tab 250 MG PO BID infection #14 Ref 0 TAB Potassium Chloride ER (Potassium Chloride ER) 10 Meq Cap 10 MEQ PO DAILY Electrolyte Replacement #30 Ref 0 CAP Continued Medications: Atorvastatin (Atorvastatin) 80 Mg Tab 80 MG PO HS Cholesterol Management #30 Ref 0 TAB Glipizide (Glipizide) 5 Mg Tab 5 MG PO DAILY Take 30 minutes before a meal Blood Sugar Management #30 Ref 0 TAB Isosorbide Mononitrate (Isosorbide Mononitrate) 10 Mg Tab 10 MG PO BID Take 2 doses 7 hours apart. Prevent Chest Pain #60 TAB Lisinopril (Lisinopril) 40 Mg Tab 40 MG PO DAILY Blood Pressure Management #30 Ref 0 TAB Sertraline (Sertraline) 100 Mg Tab 100 MG PO DAILY #30 Ref 0 TAB Tamsulosin (Flomax) 0.4 Mg Cap 0.4 MG PO DAILY #30 Ref 1 CAP Additional Information Urology f/u Sana Bond Oct 17, 2016 17:10
[2016-10-18] MEDS ORDERED: cefTRIAXone INJ 1,000 MG in SODIUM CHLORIDE 0.9% INJ 100 ML IV SCH ×2
== END 2016-10-17 17:50 | disposition home or self-care (01) ==
LOC: NEPD 21:25 → NEDA 10-17 00:54 → INTOOBSV 10-17 00:54 → NEPHCDU 10-17 07:55
PROVIDERS: ADMIT Specialist; ATTEND Specialist
DX: R33.9 Retention of urine, unspecified (principal); N32.89 Other specified disorders of bladder; R29.6 Repeated falls; R53.81 Other malaise; I10 Essential (primary) hypertension; E11.9 Type 2 diabetes mellitus without complications; I25.10 Atherosclerotic heart disease of native coronary artery without angina pectoris; N17.9 Acute kidney failure, unspecified; F41.9 Anxiety disorder, unspecified; M19.90 Unspecified osteoarthritis, unspecified site; I25.2 Old myocardial infarction; E78.5 Hyperlipidemia, unspecified; E78.00 Pure hypercholesterolemia, unspecified; Z86.73 Personal history of transient ischemic attack (TIA), and cerebral infarction without residual deficits; Z95.1 Presence of aortocoronary bypass graft; Z79.84 Long term (current) use of oral hypoglycemic drugs
CPT/HCPCS: 51702; 74176; 80048; 84153; 85025; 96374; 99285; G0378; J0696